=== PATIENT | female | born 1985 | race Caucasian/White ===

== ENCOUNTER 2016-07-23 21:03 | Emergency (ER) | payer MEDICAID ==
[2016-07-23] MEDS ORDERED: Sodium Chloride 0.9% 1,000 ML IV ONE (21:23)
[2016-07-23] MEDS ORDERED: Ondansetron 4 MG/2 ML SDV IVPUSH ONE (21:23)
[2016-07-23] MEDS ORDERED: Morphine 2 MG/ML Syringe IVPUSH ONE (21:23)
[2016-07-23] MEDS ORDERED: fentaNYL 100 MCG/2 ML SDV IVPUSH ONE (22:04)
--- NOTE | 2016-07-23 22:06 | EDM.PDOC ---
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 Patient indicates that she was diagnosed this morning with a ovarian cyst. Patient started having exquisite tenderness and pain from her abdomen radiating into her pelvic region immediately status post transvaginal ultrasound. Patient was given Voltaren for pain relief 2 minimal affect] Review of systems: As per history of present illness and below otherwise all systems reviewed and negative. Past medical history: As per history of present illness and as reviewed below otherwise noncontributory. Surgical history: As per history of present illness and as reviewed below otherwise noncontributory. Social history: No reported history of drug or alcohol abuse. Family history: As per history of present illness and as reviewed below otherwise noncontributory. Physical exam: HEENT: Atraumatic, normocephalic, pupils reactive, negative for conjunctival pallor or scleral icterus, mucous membranes moist, throat clear, neck supple, nontender, trachea midline. Lungs: Clear to auscultation, breath sounds equal bilaterally, chest nontender. Heart: S1S2, regular, negative for clicks, rubs, or JVD. Abdomen: Soft, nondistended, nontender. Negative for masses or hepatosplenomegaly. Negative for costovertebral tenderness. Pelvis: Stable nontender. Genitourinary: Deferred. Rectal: Deferred. Extremities: Atraumatic, negative for cords or calf pain. Neurovascular unremarkable. Neuro: Awake, alert, oriented. Cranial nerves II through XII unremarkable. Cerebellum unremarkable. Motor and sensory unremarkable throughout. Exam nonfocal. Test results were negative increased pain management until evaluated by UNEMPLOYMENT SPECIALIST in the a.m. Diagnostics: [CBC, CMP] Therapeutics: [IV, morphine, Zofran] Impression: [Abdominal pain] Plan: [Increased pain medication followup with UNEMPLOYMENT SPECIALIST tomorrow] Definitive disposition and diagnosis as appropriate pending reevaluation and review of above. Right Lower Abdomen Pain Score (Numeric/FACES): 10 - Related Data Allergies Allergy/AdvReac Type Severity Reaction Status Date / Time Penicillins Allergy Other Verified 01/23/16 14:20 Dial soap Allergy Difficulty Uncoded 12/07/14 15:39 Breathing Home Meds: Home Meds Omeprazole 20 mg PO DAILY 11/02/14 [History] Vilazodone Hydrochloride [Viibryd] 20 mg PO DAILY 02/26/16 [History] Diclofenac Sodium [Voltaren] 50 mg PO TIDMEALS 07/23/16 [History] LORazepam [Ativan] 0.5 mg PO ASDIRECTED PRN 07/23/16 [History] Ondansetron [Zofran ODT] 4 mg PO ASDIRECTED PRN 07/23/16 [History] metroNIDAZOLE [Flagyl] 500 mg PO Q12H 07/23/16 [History] Past Medical History - Past Health History Medical/Surgical History: Denies Medical/Surgical History Other HEENT History: Maxillary Sinusitis Respiratory History: Reports: Asthma, Bronchitis, recurrent Other Respiratory History: Nicotine Dependence 15 yr history of smoking, current use 1 pack per day Gastrointestinal History: Reports: GERD Other Gastrointestinal History: Heartburn / GERD, Fatty food intolerence, Epigastric pain, Internal hemorrhoid 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 OB/BYN History: Acute Pelvic Inflammatory disease, cyst on right ovary, IUD Psychiatric History: Reports: Anxiety, Depression Endocrine/Metabolic History: Reports: Obesity/BMI 30+ Other Immunologic History: Toxoplasmosis Other Dermatologic History: Psoriasis of Scalp - Past Surgical History Musculoskeletal Surgical 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 (see below) Other Musculoskeletal Surgeries/Procedures:: Left Hand surgery Social & Family History - Family History Family Medical History: Noncontributory Neurological: Reports: CVA - Tobacco Use Smoking Status *Q: Current Every Day Smoker Years of Tobacco use: 15 Packs/Tins Daily: 1 - Caffeine Use Caffeine Use: Reports: Soda Caffeine Use Comment: several per day - Alcohol Use Days Per Week of Alcohol Use: 1 Number of Drinks Per Day: 5 Total Drinks Per Week: 5 - Recreational Drug Use Recreational Drug Use: No Drug Use in Last 12 Months: No Recreational Drug Type: Reports: Marijuana/Hashish Recreational Drug Use Frequency: Not Used In Over 1 Year ED ROS GENERAL - Review of Systems Review Of Systems: See Below (The history of present illness) ED EXAM, GENERAL - Physical Exam Exam: See Below (History of present illness) Course - Vital Signs Last Recorded V/S: Last Vital Signs Temp 36.6 C 07/23/16 21:06 Pulse 80 07/23/16 21:06 Resp 20 07/23/16 21:06 BP 163/76 H 07/23/16 21:06 Pulse Ox 98 07/23/16 21:06 - Orders/Labs/Meds Orders: Active Orders 24 hr Category Date Time Status COMPREHENSIVE METABOLIC PN,CMP [CHEM] Stat Lab 07/23/16 21:23 Ordered UA W/MICROSCOPIC [URIN] Stat Lab 07/23/16 21:23 Uncollected Sodium Chloride 0.9% [Normal Saline] 1,000 ml Med 07/23/16 21:23 Ordered IV STAT Medication Orders Sodium Chloride (Normal Saline) 1,000 mls @ 999 mls/hr IV STAT ONE Stop: 07/23/16 22:23 Last Admin: 07/23/16 21:42 Dose: 999 mls/hr Labs: Laboratory Tests 07/23/16 Range/Units 21:30 WBC 12.90 H (4.0-11.0) K/uL RBC 4.73 (4.30-5.90) M/uL Hgb 14.0 (12.0-16.0) g/dL Hct 42.6 (36.0-46.0) % MCV 90.1 (80.0-98.0) fL MCH 29.6 (27.0-32.0) pg MCHC 32.9 (31.0-37.0) g/dL RDW Std Deviation 45.7 (28.0-62.0) fl RDW Coeff of Abhishek 14 (11.0-15.0) % Plt Count 347 (150-400) K/uL MPV 11.50 (7.40-12.00) fL Neut % (Auto) 62.8 (48.0-80.0) % Lymph % (Auto) 28.4 (16.0-40.0) % Vigo % (Auto) 6.2 (0.0-15.0) % Eos % (Auto) 2.0 (0.0-7.0) % Baso % (Auto) 0.6 (0.0-1.5) % Neut # (Auto) 8.1 H (1.4-5.7) K/uL Lymph # (Auto) 3.7 H (0.6-2.4) K/uL Vigo # (Auto) 0.8 (0.0-0.8) K/uL Eos # (Auto) 0.3 (0.0-0.7) K/uL Baso # (Auto) 0.1 (0.0-0.1) K/uL Nucleated RBC % 0.0 /100WBC Nucleated RBCs # 0 K/uL Meds: Medications Generic Name Dose Route Start Last Admin Trade Name Freq PRN Reason Stop Dose Admin Sodium Chloride 1,000 mls @ 999 mls/hr 07/23/16 21:23 07/23/16 21:42 Normal Saline IV 07/23/16 22:23 999 mls/hr STAT ONE Administration Discontinued Medications Generic Name Dose Route Start Last Admin Trade Name Freq PRN Reason Stop Dose Admin Fentanyl 50 mcg 07/23/16 22:04 07/23/16 22:09 Sublimaze IVPUSH 07/23/16 22:05 50 mcg ONETIME ONE Administration Morphine Sulfate 4 mg 07/23/16 21:23 07/23/16 21:42 Morphine IVPUSH 07/23/16 21:24 4 mg ONETIME ONE Administration Ondansetron HCl 8 mg 07/23/16 21:23 07/23/16 21:41 Zofran IVPUSH 07/23/16 21:24 8 mg ONETIME ONE Administration Departure - Departure Time of Disposition: 22:06 Disposition: Home, Self-Care 01 Condition: good Clinical Impression: Pelvic pain Referrals: PCP,None [Primary Care Provider] - Forms: ED Department Discharge Additional Instructions: The following information is given to patients seen in the emergency department who are being discharged to home. This information is to outline your options for follow-up care. We provide all patients seen in our emergency department with a follow-up referral. The need for follow-up, as well as the timing and circumstances, are variable depending upon the specifics of your emergency department visit. If you don't have a primary care physician on staff, we will provide you with a referral. We always advise you to contact your personal physician following an emergency department visit to inform them of the circumstance of the visit and for follow-up with them and/or the need for any referrals to a consulting specialist. The emergency department will also refer you to a specialist when appropriate. This referral assures that you have the opportunity for follow-up care with a specialist. All of these measure are taken in an effort to provide you with optimal care, which includes your follow-up. Under all circumstances we always encourage you to contact your private physician who remains a resource for coordinating your care. When calling for follow-up care, please make the office aware that this follow-up is from your recent emergency room visit. If for any reason you are refused follow-up, please contact the [facility] Emergency Department at and asked to speak to the emergency department charge nurse. Pain medication as directed Primary care provider in one to 2 days Return to ED as needed as discussed - My Orders Last 24 Hours: My Active Orders 07/23/16 21:23 COMPREHENSIVE METABOLIC PN,CMP [CHEM] Stat UA W/MICROSCOPIC [URIN] Stat Sodium Chloride 0.9% [Normal Saline] 1,000 ml IV STAT - Assessment/Plan Last 24 Hours: My Active Orders 07/23/16 21:23 COMPREHENSIVE METABOLIC PN,CMP [CHEM] Stat UA W/MICROSCOPIC [URIN] Stat Sodium Chloride 0.9% [Normal Saline] 1,000 ml IV STAT
[2016-07-23 22:28] LABS: CHLORIDE,CL 110 mmol/L (98-110); SODIUM,NA 140 mmol/L (136-146)
[2016-07-23 22:57] VITALS: BP 119/60
== END 2016-07-23 23:01 | disposition home or self-care (01) ==
LOC: MW.ED 21:03
DX: R10.2 Pelvic and perineal pain (principal); J45.909 Unspecified asthma, uncomplicated; K21.9 Gastro-esophageal reflux disease without esophagitis; F41.8 Other specified anxiety disorders; E66.9 Obesity, unspecified; Z68.30 Body mass index [BMI] 30.0-30.9, adult; F17.210 Nicotine dependence, cigarettes, uncomplicated; Z98.890 Other specified postprocedural states; Z88.0 Allergy status to penicillin; Z79.899 Other long term (current) drug therapy
CPT/HCPCS: 36415; 80053; 85025; 96361; 96374; 96375; 99284; J2270; J2405; J3010; J7040

== ENCOUNTER → 2016-07-23 | Outpatient (CLI) | payer MEDICAID ==
[~2016-07-23] MED LIST: Albuterol 0.083% 2.5 MG/3 ML Neb Soln NEB ONE
--- NOTE | 2016-07-23 17:10 | US ---
EXAMINATION: Transvaginal pelvic ultrasound HISTORY: Pelvic pain COMPARISON: None TECHNIQUE: Grayscale, color Doppler, and spectral Doppler images obtained transvaginally. FINDINGS: The uterus appears normal in size, contour, and echogenicity without a focal uterine mass. Endometrial stripe thickness measures 8 mm. There is a linear echogenic focus noted within the endo metrial stripe. The right ovary measures 6.3 x 3.3 x 2.7 cm demonstrating normal color and spectral Doppler flow. Th ere is a 2.2 cm simple cyst within the right ovary. The left ovary appears normal in size, contour, and echogenicity, however not optimally characterize. Normal color and spectral Doppler flow is note d. The left ovary contains a small 1.9 cm cyst is well. No adnexal masses. No significant free pelvi c fluid. IMPRESSION: 1. There is an IUD within the uterus, otherwise unremarkable transvaginal pelvic ultrasound.
== END ==
LOC: MW.US 12:58 → MW.RT 12:58
PROVIDERS: ATTEND Nurse Practitioner Women's Health
DX: R10.2 Pelvic and perineal pain (principal); R05 Cough; Z87.09 Personal history of other diseases of the respiratory system; Z97.5 Presence of (intrauterine) contraceptive device
CPT/HCPCS: 76830; 76830-26; 94060

== ENCOUNTER → 2016-08-09 | Outpatient (CLI) | payer MEDICAID ==
--- NOTE | 2016-08-09 12:46 | CR ---
EXAMINATION: Right ankle HISTORY: Pain COMPARISON: None TECHNIQUE: 3 views FINDINGS: There is no fracture, dislocation, or acute osseous abnormality. Moderate osteophytes are noted along the medial and posterior aspect of the subtalar joint. Bone mineralization otherwise alicia ears normal. No soft tissue swelling. IMPRESSION: 1. Prominent osteophytes along the posterior aspect of the subtalar joint, this could suggest powered bridge specialist ior ankle impingement.
== END | disposition home or self-care (01) ==
LOC: MW.CHOBGYN 10:22
PROVIDERS: ATTEND Nurse Practitioner Women's Health
DX: M25.571 Pain in right ankle and joints of right foot (principal); M25.774 Osteophyte, right foot
CPT/HCPCS: 73610-26-RT; 73610-RT

== ENCOUNTER 2017-08-19 20:32 | Emergency (ER) | payer MEDICAID ==
[2017-08-19] MEDS ORDERED: cefTRIAXone 1,000 MG in Lidocaine 1% 4 ML IM ONE (21:17)
--- NOTE | 2017-08-19 21:20 | EDM.PDOC ---
ED HPI GENERAL MEDICAL PROBLEM - General Chief Complaint: General Stated Complaint: PT HAS BODY PAIN Time Seen by Provider: 08/19/17 21:15 Source of Information: Reports: Patient History Limitations: Reports: No Limitations - History of Present Illness INITIAL COMMENTS - FREE TEXT/NARRATIVE: HISTORY AND PHYSICAL: []32-year-old female presenting with body aches all over she was diagnosed with strep 1 week ago still has some Augmentin to take it as feeling worse History of Present Illness: []Patient states she has taken the medicine as it has been prescribed Review of Systems: As per history of present illness and below otherwise all systems reviewed and negative. Past medical history: As per history of present illness and as reviewed below otherwise noncontributory. Surgical history: As per history of present illness and as reviewed below otherwise noncontributory. Social history: No reported history of drug or alcohol abuse. Family history: As per history of present illness and as reviewed below otherwise noncontributory. Physical exam: Alert and oriented female answering questions appropriately she has purple hair HEENT: Atraumatic, normocehpalic, pupils reactive, negative for conjunctival pallor or scleral icterus, mucous membranes moist, throat clear, neck supple, nontender, trachea midline. Lung Slight wheeze on auscultationion, breath sounds equal bilaterally, chest non tender. Heart: S1S2, regular, negative for clicks, rubs, or JVD. Abdomen: Soft, nondistended, nontender. Negative for masses or hepatossplenmegaly. Negative for costovertebral tenderness. Pelvis: Stable nontender. Genitourinary: Deferred. Rectal: Deferred Extremities: Atraumatic, negative for cords or calf pain. Neurovascular unremarkable. Neuro: Awake, alert, oriented. Cranial nerves II through XII unremarkable. Cerebellum unremarkable. Motor and sensory unremarkable throughout. Exam nonfocal. Diagnostics: [] Therapeutics: []Rocephin 1 g IM Impression: []Strep infection Plan: [] Home clindamycin Follow-up with your primary care provider She do not have a primary care care provider you need to establish care [address] [place], [place] [id number] [facility] [address] [place] [id number] Under the emergency room as directed and discussed Definitive disposition and diagnosis as appropriate pending reevaluation and review of above. Onset: Gradual Duration: Day(s): (7) Location: Reports: Generalized Severity: Mild Improves with: Reports: None Worsens with: Reports: None Associated Symptoms: Reports: Cough general Pain Score (Numeric/FACES): 6 - Related Data Allergies Allergy/AdvReac Type Severity Reaction Status Date / Time Penicillins Allergy Other Verified 08/23/16 08:41 Dial soap Allergy Difficulty Uncoded 12/07/14 15:39 Breathing Home Meds: Home Meds Omeprazole 40 mg PO DAILY 11/02/14 [History] Vilazodone [Viibryd] 40 mg PO DAILY 02/26/16 [History] Diclofenac Sodium [Voltaren] 50 mg PO TIDMEALS 07/23/16 [History] LORazepam [Ativan] 0.5 mg PO ASDIRECTED PRN 07/23/16 [History] Ondansetron [Zofran ODT] 4 mg PO ASDIRECTED PRN 07/23/16 [History] metroNIDAZOLE [Flagyl] 500 mg PO Q12H 07/23/16 [History] Clindamycin Hcl [IJD: Clindamycin] 150 mg PO .EVERY 8 HOURS #30 cap 08/19/17 [Rx ] Past Medical History - Past Health History Medical/Surgical History: Denies Medical/Surgical History Other HEENT History: Maxillary Sinusitis Cardiovascular History: Reports: None Respiratory History: Reports: Asthma, Bronchitis, Recurrent Other Respiratory History: Nicotine Dependence 15 yr history of smoking, current use <1 pack per day Gastrointestinal History: Reports: GERD Other Gastrointestinal History: Heartburn / GERD, Fatty food intolerence, Epigastric pain, Internal hemorrhoid 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 OB/BYN History: Acute Pelvic Inflammatory disease, cyst on right ovary, IUD in past Psychiatric History: Reports: Anxiety, Depression, Other (See Below) Other Psychiatric History: Schizo-affective disorder, Borderline personality disorder with social anxiety- manages on an ongoing basis at Endocrine/Metabolic History: Reports: Obesity/BMI 30+, Other (See Below) Other Endocrine/Metabolic History: Hypoglycemia Other Immunologic History: Toxoplasmosis Other Dermatologic History: Psoriasis of Scalp - Infectious Disease History Infectious Disease History: Reports: Chicken Pox - Past Surgical History GI Surgical History: Reports: Cholecystectomy, Colonoscopy, EGD Musculoskeletal Surgical History: Reports: Ganglion Cyst Social & Family History - Family History Family Medical History: Noncontributory Neurological: Reports: CVA - Tobacco Use Smoking Status *Q: Current Every Day Smoker Years of Tobacco use: 15 Packs/Tins Daily: 1 - Caffeine Use Caffeine Use: Reports: Soda Caffeine Use Comment: several per day - Alcohol Use Days Per Week of Alcohol Use: 1 Number of Drinks Per Day: 5 Total Drinks Per Week: 5 - Recreational Drug Use Recreational Drug Use: No Drug Use in Last 12 Months: No Recreational Drug Type: Reports: Marijuana/Hashish Recreational Drug Use Frequency: Not Used In Over 1 Year ED ROS GENERAL - Review of Systems Review Of Systems: ROS reveals no pertinent complaints other than HPI. ED EXAM, GENERAL - Physical Exam Exam: See Below (see dictation) Course - Vital Signs Last Recorded V/S: Last Vital Signs Temp 36.6 C 08/19/17 20:45 Pulse 98 08/19/17 20:45 Resp 18 08/19/17 20:45 BP 142/94 H 08/19/17 20:45 Pulse Ox 98 08/19/17 20:45 Departure - Departure Time of Disposition: 21:18 Disposition: Home, Self-Care 01 Condition: Good Clinical Impression: Streptococcal infection - Discharge Information Prescriptions: Clindamycin Hcl [IJD: Clindamycin] 150 mg PO .EVERY 8 HOURS #30 cap Referrals: PCP,None [Primary Care Provider] - Additional Instructions: The following information is given to patients seen in the emergency department who are being discharged to home. This information is to outline your options for follow-up care. We provide all patients seen in our emergency department with a follow-up referral. The need for follow-up, as well as the timing and circumstances, are variable depending upon the specifics of your emergency department visit. If you don't have a primary care physician on staff, we will provide you with a referral. We always advise you to contact your personal physician following an emergency department visit to inform them of the circumstance of the visit and for follow-up with them and/or the need for any referrals to a consulting specialist. The emergency department will also refer you to a specialist when appropriate. This referral assures that you have the opportunity for followup care with a specialist. All of these measure are taken in an effort to provide you with optimal care, which includes your followup. Under all circumstances we always encourage you to contact your private physician who remains a resource for coordinating your care. When calling for followup care, please make the office aware that this follow-up is from your recent emergency room visit. If for any reason you are refused follow-up, please contact the [facility] emergency department at and asked to speak to the emergency department charge nurse. Follow-up with your primary care provider If you have not establish care with a provider please call 1 of these clinics to establish care [facility] [address] [place] [address] [place] [address] EScription of clindamycin has been sent to your pharmacy Follow-up in emergency room as directed and discussed
[2017-08-19 21:56] VITALS: BP 134/87
== END 2017-08-19 21:54 | disposition home or self-care (01) ==
LOC: MW.ED 20:32
DX: A49.1 Streptococcal infection, unspecified site (principal); F17.210 Nicotine dependence, cigarettes, uncomplicated; K21.9 Gastro-esophageal reflux disease without esophagitis; F41.9 Anxiety disorder, unspecified; F32.9 Major depressive disorder, single episode, unspecified; F20.9 Schizophrenia, unspecified; E66.9 Obesity, unspecified; Z79.899 Other long term (current) drug therapy; Z88.0 Allergy status to penicillin; Z68.35 Body mass index [BMI] 35.0-35.9, adult
CPT/HCPCS: 96372; 99283; J0696; J2001

== ENCOUNTER 2017-12-18 12:00 | Emergency (ER) | payer MEDICAID ==
[2017-12-18 12:20] VITALS: BP 112/86
[2017-12-18] MEDS ORDERED: Sodium Chloride 0.9% 1,000 ML IV ONE (12:26)
[2017-12-18] MEDS ORDERED: Sodium Chloride 0.9% 2.5 ML Syringe FLUSH PRN (12:26)
[2017-12-18] MEDS ORDERED: Sodium Chloride 0.9% 10 ML Syringe FLUSH PRN (12:26)
[2017-12-18] MEDS ORDERED: Ketorolac 30 MG/ML SDV IVPUSH ONE (12:26)
--- NOTE | 2017-12-18 12:36 | EDM.PDOC ---
ED HPI GENERAL MEDICAL PROBLEM - General Chief Complaint: Abdominal Pain Stated Complaint: PAIN IN UPPER RT ABD Time Seen by Provider: 12/18/17 12:26 Source of Information: Reports: Patient History Limitations: Reports: No Limitations - History of Present Illness INITIAL COMMENTS - FREE TEXT/NARRATIVE: HISTORY AND PHYSICAL: History of present illness: Patient is a 32-year-old female here with complaint of right lower abdominal pain. Patient states that she woke up about 1 hour ago with significant pain on the right side of her abdomen. She states that the pain is constantly there but will come and go and is more sharp at times. She reports she felt nauseous but denies any vomiting or diarrhea. She states she had a normal nonbloody stool this morning. She denies any fevers, chills, hematuria or dysuria, vaginal discharge or bleeding. Patient is uncertain of last menstrual period. She has history of cholecystectomy Review of systems: As per history of present illness and below otherwise all systems reviewed and negative. Past medical history: As per history of present illness and as reviewed below otherwise noncontributory. Surgical history: As per history of present illness and as reviewed below otherwise noncontributory. Social history: No reported history of drug or alcohol abuse. Family history: As per history of present illness and as reviewed below otherwise noncontributory. Physical exam: General: Patient sitting comfortably in no acute distress and nontoxic appearing HEENT: Atraumatic, normocephalic, pupils reactive, negative for conjunctival pallor or scleral icterus, mucous membranes moist, throat clear, neck supple, nontender, trachea midline. No meningeal signs. Lungs: Clear to auscultation, breath sounds equal bilaterally, chest nontender. Heart: S1S2, regular, negative for clicks, rubs, or overt murmur. Abdomen: Bowel sounds hyperactive. Tender to palpation of the right lower quadrant. Negative psoas and obturator sign. Soft, nondistended. Negative for masses or hepatosplenomegaly. Left CVA tenderness Pelvis: Stable nontender. Genitourinary: Deferred. Rectal: Deferred. Extremities: Atraumatic, negative for cords or calf pain. Neurovascular unremarkable. Neuro: Awake, alert, oriented. Cranial nerves II through XII unremarkable. Cerebellum unremarkable. Motor and sensory unremarkable throughout. Exam nonfocal. Notes: Diagnostics: CBC, CMP, lipase, UA, urine culture, CT abdomen/pelvis Therapeutics: 1 L normal saline IV 30 mg Toradol IV Prescriptions: None Impression: Right ovarian cyst Left lower abdominal pain Plan: 1. Take motrin or tylenol as needed for pain. 2. Follow up with your primary care provider in the next week 3. Return to ED as needed as discussed Definitive disposition and diagnosis as appropriate pending reevaluation and review of above. Right Abdomen Pain Score (Numeric/FACES): 8 - Related Data Allergies Allergy/AdvReac Type Severity Reaction Status Date / Time Penicillins Allergy Other Verified 08/23/16 08:41 Dial soap Allergy Difficulty Uncoded 12/07/14 15:39 Breathing Home Meds: Home Meds Omeprazole 40 mg PO DAILY 11/02/14 [History] Ondansetron [Zofran ODT] 4 mg PO ASDIRECTED PRN 07/23/16 [History] Albuterol [Proventil HFA] 12/18/17 [History] Past Medical History - Past Health History Medical/Surgical History: Denies Medical/Surgical History Other HEENT History: Maxillary Sinusitis Cardiovascular History: Reports: None Respiratory History: Reports: Asthma, Bronchitis, Recurrent Other Respiratory History: Nicotine Dependence 15 yr history of smoking, current use <1 pack per day Gastrointestinal History: Reports: GERD Other Gastrointestinal History: Heartburn / GERD, Fatty food intolerence, Epigastric pain, Internal hemorrhoid MOTOR INSTALLER 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 MOTOR INSTALLER History: Acute Pelvic Inflammatory disease, cyst on right ovary, IUD in past Psychiatric History: Reports: Anxiety, Depression, Other (See Below) Other Psychiatric History: Schizo-affective disorder, Borderline personality disorder with social anxiety- manages on an ongoing basis at Endocrine/Metabolic History: Reports: Obesity/BMI 30+, Other (See Below) Other Endocrine/Metabolic History: Hypoglycemia Other Immunologic History: Toxoplasmosis Other Dermatologic History: Psoriasis of Scalp - Infectious Disease History Infectious Disease History: Reports: Chicken Pox - Past Surgical History GI Surgical History: Reports: Cholecystectomy, Colonoscopy, EGD Musculoskeletal Surgical History: Reports: Ganglion Cyst Social & Family History - Family History Family Medical History: Noncontributory Neurological: Reports: CVA - Caffeine Use Caffeine Use: Reports: Soda Caffeine Use Comment: several per day ED ROS GENERAL - Review of Systems Review Of Systems: ROS reveals no pertinent complaints other than HPI. ED EXAM, GI/ABD - Physical Exam Exam: See Below (See dictation) Course - Vital Signs Last Recorded V/S: Last Vital Signs Temp 36.4 C 12/18/17 12:16 Pulse 90 12/18/17 12:16 Resp 18 12/18/17 12:16 BP 112/86 12/18/17 12:16 Pulse Ox 98 12/18/17 12:16 - Orders/Labs/Meds Orders: Active Orders 24 hr Category Date Time Status CULTURE URINE [RM] Stat Lab 12/18/17 13:00 Ordered HCG QUALITATIVE,URINE [URCHEM] Stat Lab 12/18/17 13:00 Ordered UA W/MICROSCOPIC [URIN] Stat Lab 12/18/17 13:00 Ordered Sodium Chloride 0.9% [Saline Flush] Med 12/18/17 12:26 Active 10 ml FLUSH ASDIRECTED PRN Sodium Chloride 0.9% [Saline Flush] Med 12/18/17 12:26 Active 2.5 ml FLUSH ASDIRECTED PRN Saline Lock Insert [OM.PC] Stat Oth 12/18/17 12:26 Ordered Medication Orders Sodium Chloride (Saline Flush) 10 ml FLUSH ASDIRECTED PRN PRN Reason: Keep Vein Open Sodium Chloride (Saline Flush) 2.5 ml FLUSH ASDIRECTED PRN PRN Reason: Keep Vein Open Labs: Laboratory Tests 12/18/17 12/18/17 12/18/17 Range/Units 12:40 12:40 13:00 WBC 15.40 H (4.0-11.0) K/uL RBC 5.16 (4.30-5.90) M/uL Hgb 15.2 (12.0-16.0) g/dL Hct 46.0 (36.0-46.0) % MCV 89.1 (80.0-98.0) fL MCH 29.5 (27.0-32.0) pg MCHC 33.0 (31.0-37.0) g/dL RDW Std Deviation 43.5 (28.0-62.0) fl RDW Coeff of Abhishek 13 (11.0-15.0) % Plt Count 333 (150-400) K/uL MPV 10.90 (7.40-12.00) fL Neut % (Auto) 65.9 (48.0-80.0) % Lymph % (Auto) 24.5 (16.0-40.0) % Kings % (Auto) 5.3 (0.0-15.0) % Eos % (Auto) 3.9 (0.0-7.0) % Baso % (Auto) 0.4 (0.0-1.5) % Neut # (Auto) 10.2 H (1.4-5.7) K/uL Lymph # (Auto) 3.8 H (0.6-2.4) K/uL Kings # (Auto) 0.8 (0.0-0.8) K/uL Eos # (Auto) 0.6 (0.0-0.7) K/uL Baso # (Auto) 0.1 (0.0-0.1) K/uL Nucleated RBC % 0.0 /100WBC Nucleated RBCs # 0 K/uL Sodium 138 (136-145) mmol/L Potassium 4.3 (3.5-5.1) mmol/L Chloride 103 (98-107) mmol/L Carbon Dioxide 27.3 (21.0-32.0) mmol/L BUN 9 (7.0-18.0) mg/dL Creatinine 0.8 (0.6-1.0) mg/dL Est Cr Clr Drug Dosing TNP Estimated GFR (MDRD) > 60.0 ml/min Glucose 89 (74-106) mg/dL Calcium 8.5 (8.5-10.1) mg/dL Total Bilirubin 0.1 L (0.2-1.0) mg/dL AST 13 L (15-37) IU/L ALT 26 (14-63) IU/L Alkaline Phosphatase 72 (46-116) U/L Total Protein 7.5 (6.4-8.2) g/dL Albumin 3.5 (3.4-5.0) g/dL Globulin 4.0 H (2.0-3.5) g/dL Albumin/Globulin Ratio 0.9 L (1.3-2.8) Lipase 302 (73-393) U/L Urine Color YELLOW Urine Appearance CLEAR Urine pH 6.0 (5.0-8.0) Ur Specific [place] 1.010 (1.001-1.035) Urine Protein NEGATIVE (NEGATIVE) mg/dL Urine Glucose (UA) NEGATIVE (NEGATIVE) mg/dL Urine Ketones NEGATIVE (NEGATIVE) mg/dL Urine Occult Blood NEGATIVE (NEGATIVE) Urine Nitrite NEGATIVE (NEGATIVE) Urine Bilirubin NEGATIVE (NEGATIVE) Urine Urobilinogen 0.2 (<2.0) EU/dL Ur Leukocyte Esterase SMALL (NEGATIVE) Urine RBC 0-1 (0-2/HPF) Urine WBC 1-2 (0-5/HPF) Ur Epithelial Cells MANY (NONE-FEW) Urine Bacteria RARE (NEGATIVE) Urine HCG, Qual (NEGATIVE) 12/18/17 Range/Units 13:00 WBC (4.0-11.0) K/uL RBC (4.30-5.90) M/uL Hgb (12.0-16.0) g/dL Hct (36.0-46.0) % MCV (80.0-98.0) fL MCH (27.0-32.0) pg MCHC (31.0-37.0) g/dL RDW Std Deviation (28.0-62.0) fl RDW Coeff of Abhishek (11.0-15.0) % Plt Count (150-400) K/uL MPV (7.40-12.00) fL Neut % (Auto) (48.0-80.0) % Lymph % (Auto) (16.0-40.0) % Kings % (Auto) (0.0-15.0) % Eos % (Auto) (0.0-7.0) % Baso % (Auto) (0.0-1.5) % Neut # (Auto) (1.4-5.7) K/uL Lymph # (Auto) (0.6-2.4) K/uL Kings # (Auto) (0.0-0.8) K/uL Eos # (Auto) (0.0-0.7) K/uL Baso # (Auto) (0.0-0.1) K/uL Nucleated RBC % /100WBC Nucleated RBCs # K/uL Sodium (136-145) mmol/L Potassium (3.5-5.1) mmol/L Chloride (98-107) mmol/L Carbon Dioxide (21.0-32.0) mmol/L BUN (7.0-18.0) mg/dL Creatinine (0.6-1.0) mg/dL Est Cr Clr Drug Dosing Estimated GFR (MDRD) ml/min Glucose (74-106) mg/dL Calcium (8.5-10.1) mg/dL Total Bilirubin (0.2-1.0) mg/dL AST (15-37) IU/L ALT (14-63) IU/L Alkaline Phosphatase (46-116) U/L Total Protein (6.4-8.2) g/dL Albumin (3.4-5.0) g/dL Globulin (2.0-3.5) g/dL Albumin/Globulin Ratio (1.3-2.8) Lipase (73-393) U/L Urine Color Urine Appearance Urine pH (5.0-8.0) Ur Specific [place] (1.001-1.035) Urine Protein (NEGATIVE) mg/dL Urine Glucose (UA) (NEGATIVE) mg/dL Urine Ketones (NEGATIVE) mg/dL Urine Occult Blood (NEGATIVE) Urine Nitrite (NEGATIVE) Urine Bilirubin (NEGATIVE) Urine Urobilinogen (<2.0) EU/dL Ur Leukocyte Esterase (NEGATIVE) Urine RBC (0-2/HPF) Urine WBC (0-5/HPF) Ur Epithelial Cells (NONE-FEW) Urine Bacteria (NEGATIVE) Urine HCG, Qual NEGATIVE (NEGATIVE) Meds: Medications Generic Name Dose Route Start Last Admin Trade Name Freq PRN Reason Stop Dose Admin Sodium Chloride 10 ml 12/18/17 12:26 Saline Flush FLUSH ASDIRECTED PRN Keep Vein Open Sodium Chloride 2.5 ml 12/18/17 12:26 Saline Flush FLUSH ASDIRECTED PRN Keep Vein Open Discontinued Medications Generic Name Dose Route Start Last Admin Trade Name Ky PRN Reason Stop Dose Admin Sodium Chloride 1,000 mls @ 999 mls/hr 12/18/17 12:26 12/18/17 12:51 Normal Saline IV 12/18/17 13:26 999 mls/hr STAT ONE Administration Iopamidol 100 ml 12/18/17 14:20 12/18/17 14:22 Isovue Multipack-370 (76%) IVPUSH 12/18/17 14:21 100 ml ONETIME STA Administration Ketorolac Tromethamine 30 mg 12/18/17 12:26 12/18/17 12:48 Toradol IVPUSH 12/18/17 12:27 30 mg ONETIME ONE Administration Departure - Departure Time of Disposition: 14:50 Disposition: Home, Self-Care 01 Condition: Good Clinical Impression: Right ovarian cyst, LLQ abdominal pain - Discharge Information Referrals: PCP,Ap [Primary Care Provider] - Adreinne Sheehan, ART TEACHER [Nurse Practitioner] - 2 Days Forms: ED Department Discharge Additional Instructions: The following information is given to patients seen in the emergency department who are being discharged to home. This information is to outline your options for follow-up care. We provide all patients seen in our emergency department with a follow-up referral. The need for follow-up, as well as the timing and circumstances, are variable depending upon the specifics of your emergency department visit. If you don't have a primary care physician on staff, we will provide you with a referral. We always advise you to contact your personal physician following an emergency department visit to inform them of the circumstance of the visit and for follow-up with them and/or the need for any referrals to a consulting specialist. The emergency department will also refer you to a specialist when appropriate. This referral assures that you have the opportunity for follow-up care with a specialist. All of these measure are taken in an effort to provide you with optimal care, which includes your follow-up. Under all circumstances we always encourage you to contact your private physician who remains a resource for coordinating your care. When calling for follow-up care, please make the office aware that this follow-up is from your recent emergency room visit. If for any reason you are refused follow-up, please contact the [facility] Emergency Department at and asked to speak to the emergency department charge nurse. [facility] [address] [place] [id number] 1. Take motrin or tylenol as needed for pain. 2. Follow up with your primary care provider in the next week 3. Return to ED as needed as discussed - My Orders Last 24 Hours: My Active Orders 12/18/17 12:26 Sodium Chloride 0.9% [Saline Flush] 10 ml FLUSH ASDIRECTED PRN Sodium Chloride 0.9% [Saline Flush] 2.5 ml FLUSH ASDIRECTED PRN Saline Lock Insert [OM.PC] Stat 12/18/17 13:00 CULTURE URINE [RM] Stat HCG QUALITATIVE,URINE [URCHEM] Stat UA W/MICROSCOPIC [URIN] Stat - Assessment/Plan Last 24 Hours: My Active Orders 12/18/17 12:26 Sodium Chloride 0.9% [Saline Flush] 10 ml FLUSH ASDIRECTED PRN Sodium Chloride 0.9% [Saline Flush] 2.5 ml FLUSH ASDIRECTED PRN Saline Lock Insert [OM.PC] Stat 12/18/17 13:00 CULTURE URINE [RM] Stat HCG QUALITATIVE,URINE [URCHEM] Stat UA W/MICROSCOPIC [URIN] Stat
[2017-12-18 13:42] LABS: CHLORIDE,CL 103 mmol/L (98-107); SODIUM,NA 138 mmol/L (136-145)
[2017-12-18] MEDS ORDERED: Iopamidol 755 MG/ML 500 ML Multipack Bottle IVPUSH STA (14:20)
--- NOTE | 2017-12-18 14:41 | CT ---
CT of the abdomen and pelvis with contrast. HISTORY: Pain TECHNIQUE: Axial CT images were obtained of the abdomen and pelvis following administration of 100 mL of Isovue-370 in the left antecubital fossa without complication. Coronal and sagittal reconstructio ns obtained. FINDINGS: There is a tiny 4 mm nodule within the right middle lobe, likely benign given the patient's age. The liver, spleen, adrenal glands, and pancreas appear normal. Cholecystectomy clips are noted. No bu lky retroperitoneal lymphadenopathy or abdominal ascites. The kidneys enhance and function symmetrically without evidence of obstructive uropathy. The large and small bowel are normal in caliber without evidence of obstruction. The retrocecal appen ector appears grossly normal. The urinary bladder is decompressed. Uterus is normal. 2.4 cm left ovaria n cyst is noted. No pelvic lymphadenopathy or free pelvic fluid. No suspicious osseous abnormalities identified. IMPRESSION: 1. No acute findings noted within the abdomen or pelvis.
== END 2017-12-18 15:02 | disposition home or self-care (01) ==
LOC: MW.ED 12:00
DX: N83.201 Unspecified ovarian cyst, right side (principal); Z88.0 Allergy status to penicillin; Z91.09 Other allergy status, other than to drugs and biological substances; Z79.899 Other long term (current) drug therapy
CPT/HCPCS: 36415; 74177; 80053; 81001; 81025; 83690; 85025; 87086; 96361; 96374; 99284; J1885; J7040; Q9967

== ENCOUNTER 2018-04-28 20:37 | Emergency (ER) | payer MEDICAID ==
--- NOTE | 2018-04-28 20:52 | EDM.PDOC ---
ED HPI GENERAL MEDICAL PROBLEM - General Chief Complaint: Back Pain or Injury Stated Complaint: BACK PAIN Time Seen by Provider: 04/28/18 20:44 - History of Present Illness INITIAL COMMENTS - FREE TEXT/NARRATIVE: HISTORY AND PHYSICAL: History of present illness: Patient is a 32-year-old female who has a history of chronic back pain and was seen here 3 times in March in the emergency department twice for back pain and one for urinary symptoms and also saw her provider in the clinic. According to the computer the patient had an MRI performed today at 4:00 of the lumbar spine which has not been read. The patient in the past has taken tramadol Zanaflex and meloxicam for her pain and when she was seen here in March she received Toradol Lexapro and one dose of Dilaudid and was significantly better. Since those visits she has followed up in the clinic and had the MRI performed. The patient says that she was doing fine all day today and she took her last Flexeril and tramadol before her MRI and was able to perform the MRI without much pain. Since that time she feels like she has had increased spasm in the same location as previously in her lower thoracic and upper lumbar spine bilaterally. The pain does not radiate to her legs and she has no bowel or bladder disturbances. She has no neurosensory changes or weakness in her legs and she has had no recent trauma or falls. She's had nausea for the pain but no vomiting and no abdominal pain. She denies which was checked prior to her MRI. She's had no fevers chills upper respiratory symptoms shortness of breath and no urinary complaints such as hematuria dysuria frequency and no flank pain. Due to the pain to not having her medications and says that there is nothing new or different about it. Review of systems: As per history of present illness and below otherwise all systems reviewed and negative. Past medical history: As per history of present illness and as reviewed below otherwise noncontributory. Surgical history: As per history of present illness and as reviewed below otherwise noncontributory. Social history: No reported history of drug or alcohol abuse. Family history: As per history of present illness and as reviewed below otherwise noncontributory. Physical exam: General: Well-developed well-nourished mildly overweight female who is nontoxic and looks very uncomfortable in the room and has difficulty sitting still because of the discomfort. Vital signs were noted by me HEENT: Atraumatic, normocephalic, negative for conjunctival pallor or scleral icterus, mucous membranes moist, throat clear, neck supple, nontender, trachea midline. Lungs: Clear to auscultation, breath sounds equal bilaterally, chest nontender. Heart: S1S2, regular rate and rhythm no overt murmurs Abdomen: Soft, nondistended, nontender. Negative for masses or hepatosplenomegaly. Negative for costovertebral tenderness. Pelvis: Stable nontender. Genitourinary: Deferred. Rectal: Deferred. Extremities: Atraumatic,. Neurovascular unremarkable. Full range of motion without defects or deficits Neuro: Awake, alert, oriented. Cranial nerves II through XII unremarkable. Cerebellum unremarkable. Motor and sensory unremarkable throughout. Exam nonfocal. Dorsi and plantar flexion is intact 5/5 inclusive of the great toe patellar reflexes are +2 over 4 bilaterally and there is no weakness in the lower extremities. Back: There are no midline step-offs tenderness defects of the thoracic or lumbar spine but there is diffuse tenderness with palpation of the paraspinal musculature of the lower thoracic and upper lumbar areas bilaterally. There is no soft tissue swelling appreciated and there is no CVA tenderness. There is no tenderness when I palpate the SI joint or the pelvis nor is there pain with palpation of the buttocks bilaterally Diagnostics: MRI from earlier today was sent to [facility] for reading Therapeutics: Toradol Norflex Byron Patient is aware of MRI results which reveal a right paracentral moderate disc bulge which does not cause any spinal canal impingement and this is at L5-S1. This is not the area where she is having discomfort which is more muscular and she agrees that the Flexeril she had previously works very well for her with the tramadol. She would like that for home rather than the Zanaflex. I told her that once her pain is under better control here she can go home and follow-up with Adrienne in the clinic. We will also give her a Medrol pack to see if that helps with some of the inflammation of the disc. She now tells me that she does have intermittent numbness in her great toe and second toe which is not new or different and this would explain those findings. She again tells me that the pain does not shoot down her leg and there is no bowel or bladder disturbances. Patient tells me the pain is improving and she would like to go home so that she can make the pharmacy before they closed. Impression: Lower back pain acute on chronic, right paracentral disc protrusion at L5-S1, medication refill Definitive disposition and diagnosis as appropriate pending reevaluation and review of above. middle back Pain Score (Numeric/FACES): 10 - Related Data Allergies Allergy/AdvReac Type Severity Reaction Status Date / Time Dial soap Allergy Difficulty Uncoded 04/28/18 20:53 Breathing Home Meds: Home Meds Omeprazole 40 mg PO DAILY 11/02/14 [History] Albuterol [Proventil HFA] 1 puff INH ASDIRECTED PRN 12/18/17 [History] Meloxicam 7.5 mg PO DAILY 04/15/18 [History] traMADol HCl [Tramadol HCl] 50 mg PO Q6H PRN 04/15/18 [History] Cyclobenzaprine [Flexeril] 1 tab PO TID PRN 04/28/18 [History] Past Medical History - Past Health History Medical/Surgical History: Denies Medical/Surgical History Other HEENT History: Maxillary Sinusitis Cardiovascular History: Reports: None Respiratory History: Reports: Asthma, Bronchitis, Recurrent Other Respiratory History: Nicotine Dependence 15 yr history of smoking, current use <1 pack per day Gastrointestinal History: Reports: GERD Other Gastrointestinal History: Heartburn / GERD, Fatty food intolerence, Epigastric pain, Internal hemorrhoid MARINE TECHNICIAN 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 MARINE TECHNICIAN History: Acute Pelvic Inflammatory disease, cyst on right ovary, IUD in past Psychiatric History: Reports: Anxiety, Depression, Other (See Below) Other Psychiatric History: Schizo-affective disorder, Borderline personality disorder with social anxiety- manages on an ongoing basis at Endocrine/Metabolic History: Reports: Obesity/BMI 30+, Other (See Below) Other Endocrine/Metabolic History: Hypoglycemia Other Immunologic History: Toxoplasmosis Other Dermatologic History: Psoriasis of Scalp - Infectious Disease History Infectious Disease History: Reports: None - Past Surgical History GI Surgical History: Reports: Cholecystectomy, Colonoscopy, EGD Musculoskeletal Surgical History: Reports: Ganglion Cyst Social & Family History - Family History Family Medical History: Noncontributory Neurological: Reports: CVA - Caffeine Use Caffeine Use: Reports: Coffee Caffeine Use Comment: several per day ED ROS GENERAL - Review of Systems Review Of Systems: ROS reveals no pertinent complaints other than HPI. ED EXAM, GENERAL - Physical Exam Exam: See Below (See dictation) Course - Vital Signs Last Recorded V/S: Last Vital Signs Temp 36.6 C 04/28/18 20:40 Pulse 64 04/28/18 20:40 Resp 18 04/28/18 20:40 BP 127/89 04/28/18 20:40 Pulse Ox 96 04/28/18 20:40 - Orders/Labs/Meds Meds: Medications Discontinued Medications Generic Name Dose Route Start Last Admin Trade Name Ky PRN Reason Stop Dose Admin Hydrocodone Bitart/Acetaminophen 1 tab 04/28/18 20:58 04/28/18 21:12 Byron 325-7.5 Mg PO 04/28/18 20:59 1 tab ONETIME ONE Administration Ketorolac Tromethamine 60 mg 04/28/18 20:58 04/28/18 21:13 Toradol IM 04/28/18 20:59 60 mg ONETIME ONE Administration Orphenadrine Citrate 60 mg 04/28/18 20:58 04/28/18 21:13 Norflex IM 04/28/18 20:59 60 mg ONETIME ONE Administration Departure - Departure Time of Disposition: 21:46 Disposition: Home, Self-Care 01 Condition: Good Clinical Impression: Musculoskeletal pain, Lumbar disc disease Lower back pain Qualifiers: Chronicity: unspecified Back pain laterality: bilateral Sciatica presence: without sciatica Qualified Code(s): M54.5 - Low back pain - Discharge Information Referrals: Adrienne Sheehan, FOUNDER [Primary Care Provider] - Forms: ED Department Discharge Additional Instructions: The following information is given to patients seen in the emergency department who are being discharged to home. This information is to outline your options for follow-up care. We provide all patients seen in our emergency department with a follow-up referral. The need for follow-up, as well as the timing and circumstances, are variable depending upon the specifics of your emergency department visit. If you don't have a primary care physician on staff, we will provide you with a referral. We always advise you to contact your personal physician following an emergency department visit to inform them of the circumstance of the visit and for follow-up with them and/or the need for any referrals to a consulting specialist. The emergency department will also refer you to a specialist when appropriate. This referral assures that you have the opportunity for followup care with a specialist. All of these measure are taken in an effort to provide you with optimal care, which includes your followup. Under all circumstances we always encourage you to contact your private physician who remains a resource for coordinating your care. When calling for followup care, please make the office aware that this follow-up is from your recent emergency room visit. If for any reason you are refused follow-up, please contact the [facility] emergency department at and ask to speak to the emergency department charge nurse. [facility] Primary care- Internal Medicine and Family [address] [address] Please contact and follow-up with Adrienne in the clinic as we discussed over the next few days to discuss future treatment of your MRI results. Please take medications as prescribed, Flexeril tramadol and the Medrol Dosepak. You may apply heat or ice to the back areas and gentle massage to help open it up. Please do some stretching exercises to try to open areas up. Return to ER as needed and as discussed
[2018-04-28] MEDS ORDERED: Ketorolac 60 MG/2 ML SDV IM ONE (20:58)
[2018-04-28] MEDS ORDERED: Acetaminophen/HYDROcodone 325-7.5 MG Tab PO ONE (20:58)
[2018-04-28 22:00] VITALS: BP 122/81
== END 2018-04-28 21:50 | disposition home or self-care (01) ==
LOC: MW.ED 20:37
DX: M51.9 Unspecified thoracic, thoracolumbar and lumbosacral intervertebral disc disorder (principal); Z79.899 Other long term (current) drug therapy; Z76.0 Encounter for issue of repeat prescription
CPT/HCPCS: 96372; 99283; A9270; J1885; J2360

== ENCOUNTER 2018-06-12 12:48 | Day surgery (SDC) | payer MEDICAID ==
[~2018-06-12 12:48] MED LIST changes: -Albuterol 0.083% 2.5 MG/3 ML Neb Soln NEB ONE; +Betamethasone Acetate/Betamethasone Sod Phosphate 30 MG/5 ML MDV ONE; +Iopamidol 408 MG/ML 50 ML SDV ONE; +Lidocaine 2% 5 ML SDV ONE; +Ropivacaine 0.5% 5 MG/ML 30 ML SDV ONE
--- NOTE | 2018-06-13 16:12 | OR ---
SURGEON: Lorie Posada D.O. DATE OF PROCEDURE: 06/12/2018 OR STAFF PRESENT: 1. Ashley Mederos RN. 2. Elida King RN. 3. RT Yamil. WOUND CLASS: I. PREOPERATIVE DIAGNOSES: 1. Lumbar degenerative disk disease. 2. Lumbar herniated disk. 3. Lumbar radiculopathy. 4. Transitional vertebrae. 5. Neuroforaminal stenosis. 6. Chronic low back pain. POSTOPERATIVE DIAGNOSES: 1. Lumbar degenerative disk disease. 2. Lumbar herniated disk. 3. Lumbar radiculopathy. 4. Transitional vertebrae. 5. Neuroforaminal stenosis. 6. Chronic low back pain. PROCEDURES PERFORMED: 1. Caudal epidural steroid injection. 2. Fluoroscopic guidance for needle placement. 3. Local with oral valium for sedation. SCREENING QUESTIONS: The patient answered "no" to all of the following questions: 1. Are you allergic to latex? 2. Do you have a bleeding disorder? 3. Do you have any current local or systemic infections? 4. Are you taking any anti-inflammatories or blood thinners? 5. Do you have any joint replacements, heart valve replacements, or a pacemaker? DESCRIPTION OF PROCEDURE: The patient had the procedure thoroughly explained including all possible risks, benefits and alternatives. Consent was signed in my clinic indicating understanding and willingness to proceed. The patient presented to [facility] and was escorted to the dressing room to disrobe and change into a hospital gown. Preoperative vital signs were taken and stable. The patient reported that Valium was taken prior to the procedure. The patient was brought back to the procedure room and placed in the prone position on the procedure room table. A pillow was placed under the hips in order to flatten the lumbar lordosis. The back was prepped with ChloraPrep and sterilely draped. All personnel in the operating room were dressed in appropriate attire including surgical scrubs, head and shoe covers. This was to ensure sterility while in the treatment room. During the time fluoroscopy was in use, all personnel in the operating room wore lead dodson with thyroid collars. Sterile technique was used throughout the procedure. The patient was awake and conversant throughout the procedure. There was no evidence of infection at the site of needle insertion. Skeletal landmarks were identified under fluoroscopy for the caudal epidural. Skin was anesthetized with 2% lidocaine with a sterile 27-gauge 1.5 inch needle. Then, a 20-gauge Tuohy epidural needle was placed in the epidural space with loss of resistance technique under fluoroscopic guidance. No heme, cerebrospinal fluid, or paresthesias were noted. Isovue-200 contrast dye was injected in 0.2 cubic centimeter increments and seen to outline the epidural space in both AP and lateral views. There was no intravascular flow pattern observed under live fluoroscopy. Then, 12 milligrams of Celestone was slowly injected after negative aspiration. The patient tolerated the procedure well. Vital signs were stable during and after the procedure. The staff escorted the patient to the recovery area and the patient was released in stable condition after a brief stay in the recovery room monitored by the nurse. The patient was given both oral and written discharge and follow up instructions with recommendation to follow up given for 2-3 weeks. The patient voiced understanding including understanding of those signs and symptoms that would require emergency care. The patient knows how to contact the office if there are any additional problems or questions in the meantime. PREOPERATIVE PAIN: 7/10. POSTOPERATIVE PAIN: 0/10. FOLLOWUP: Follow up in the pain clinic in 3 weeks. ARIAN / EMIGDIO /[id number] PETAR
== END 2018-06-12 14:30 | disposition home or self-care (01) ==
LOC: MW.SDS 12:48
PROVIDERS: ATTEND Anesthesiology
DX: G89.29 Other chronic pain (principal); M51.17 Intervertebral disc disorders with radiculopathy, lumbosacral region; M79.18 Myalgia, other site; J45.909 Unspecified asthma, uncomplicated; F17.200 Nicotine dependence, unspecified, uncomplicated; F32.9 Major depressive disorder, single episode, unspecified; K21.9 Gastro-esophageal reflux disease without esophagitis; M99.83 Other biomechanical lesions of lumbar region; Z79.899 Other long term (current) drug therapy
CPT/HCPCS: 62323; 81025; J0702; J2795; Q9966; J2001

== ENCOUNTER 2018-07-10 10:22 | Day surgery (SDC) | payer MEDICAID ==
[2018-07-10] MEDS ORDERED: Betamethasone Acetate/Betamethasone Sod Phosphate 30 MG/5 ML MDV ONE (11:42)
[2018-07-10] MEDS ORDERED: Iopamidol 408 MG/ML 50 ML SDV ONE (11:42)
[2018-07-10] MEDS ORDERED: Lidocaine 2% 5 ML SDV ONE (11:42)
[2018-07-10] MEDS ORDERED: Ropivacaine 0.5% 5 MG/ML 30 ML SDV ONE (11:42)
--- NOTE | 2018-07-11 08:59 | OR ---
SURGEON: Lorie Posada D.O. DATE OF PROCEDURE: 07/10/2018 OR STAFF PRESENT: 1. Sharda Sampson RN. 2. Elida King RN. 3. RT Nirali. WOUND CLASS: I. PREOPERATIVE DIAGNOSES: 1. Lumbar herniated disk. 2. Lumbar radiculopathy. 3. Lumbar spinal stenosis. POSTOPERATIVE DIAGNOSES: 1. Lumbar herniated disk. 2. Lumbar radiculopathy. 3. Lumbar spinal stenosis. PROCEDURES PERFORMED: 1. Caudal epidural steroid injection. 2. Fluoroscopic guidance for needle placement. 3. Local with oral Valium for sedation. SCREENING QUESTIONS: The patient answered "no" to all of the following questions: 1. Are you allergic to latex? 2. Do you have a bleeding disorder? 3. Do you have any current local or systemic infections? 4. Are you taking any anti-inflammatories or blood thinners? 5. Do you have any joint replacements, heart valve replacements, or a pacemaker? DESCRIPTION OF PROCEDURE: The patient had the procedure thoroughly explained including all possible risks, benefits and alternatives. Consent was signed in my clinic indicating understanding and willingness to proceed. The patient presented to [facility] and was escorted to the dressing room to disrobe and change into a hospital gown. Preoperative vital signs were taken and stable. The patient reported that Valium was taken prior to the procedure. The patient was brought back to the procedure room and placed in the prone position on the procedure room table. A pillow was placed under the hips in order to flatten the lumbar lordosis. The back was prepped with ChloraPrep and sterilely draped. All personnel in the operating room were dressed in appropriate attire including surgical scrubs, head and shoe covers. This was to ensure sterility while in the treatment room. During the time fluoroscopy was in use, all personnel in the operating room wore lead dodson with thyroid collars. Sterile technique was used throughout the procedure. The patient was awake and conversant throughout the procedure. There was no evidence of infection at the site of needle insertion. Skeletal landmarks were identified under fluoroscopy for the lumbar epidural. Skin was anesthetized with 2% lidocaine with a sterile 27-gauge 1.5 inch needle. Then, a 20-gauge Tuohy epidural needle was placed in the epidural space with loss of resistance technique under fluoroscopic guidance. No heme, cerebrospinal fluid, or paresthesias were noted. Isovue-200 contrast dye was injected in 0.2 cubic centimeter increments and seen to outline the epidural space in both AP and lateral views. There was no intravascular flow pattern observed under live fluoroscopy. Then, 12 milligrams of Celestone was slowly injected after negative aspiration. The patient tolerated the procedure well. Vital signs were stable during and after the procedure. The staff escorted the patient to the recovery area and the patient was released in stable condition after a brief stay in the recovery room monitored by the nurse. The patient was given both oral and written discharge and follow up instructions with recommendation to follow up given for 2-3 weeks. The patient voiced understanding including understanding of those signs and symptoms that would require emergency care. The patient knows how to contact the office if there are any additional problems or questions in the meantime. PREOPERATIVE PAIN: 7/10. POSTOPERATIVE PAIN: 2/10. FOLLOWUP: Follow up in the pain clinic in 3 weeks. ARIAN / EMIGDIO /[id number]
== END 2018-07-10 13:23 ==
LOC: MW.SDS 10:22
PROVIDERS: ATTEND Anesthesiology
DX: M51.16 Intervertebral disc disorders with radiculopathy, lumbar region (principal); M48.061 Spinal stenosis, lumbar region without neurogenic claudication
CPT/HCPCS: 62323; 81025; J0702; J2795; Q9966; J2001

== ENCOUNTER 2018-08-19 10:37 | Day surgery (SDC) | payer MEDICAID ==
[2018-08-19] MEDS ORDERED: Ropivacaine 0.5% 5 MG/ML 30 ML SDV ONE (10:58)
[2018-08-19] MEDS ORDERED: Lidocaine 2% 5 ML SDV ONE (10:58)
[2018-08-19] MEDS ORDERED: Betamethasone Acetate/Betamethasone Sod Phosphate 30 MG/5 ML MDV ONE (10:58)
--- NOTE | 2018-08-21 00:44 | OR ---
SURGEON: Lorie Posada D.O. DATE OF PROCEDURE: 08/19/2018 PRIMARY SURGEON: Lorie Posada DO OPERATING ROOM STAFF PRESENT: 1. Violetta Moctezuma RN. 2. Elida Ramsay RN. 3. RT Nirali. WOUND CLASS: I. PREOPERATIVE DIAGNOSES: 1. Chronic low back pain. 2. L5-S1 radiculopathy. 3. Lumbar L5-S1 herniated disk. 4. Lumbar transitional vertebrae. 5. Lumbar sacralization. POSTOPERATIVE DIAGNOSES: 1. Chronic low back pain. 2. L5-S1 radiculopathy. 3. Lumbar L5-S1 herniated disk. 4. Lumbar transitional vertebrae. 5. Lumbar sacralization. PROCEDURES PERFORMED: 1. Caudal epidural steroid injection. 2. Fluoroscopic guidance for needle placement. 3. Local with oral Valium for sedation. PREOPERATIVE PAIN: 5+/10. POSTOPERATIVE PAIN: 0/10. FOLLOWUP: In the Pain Clinic in 3 weeks. SCREENING QUESTIONS: The patient answered "no" to all of the following questions: 1. Are you allergic to latex? 2. Do you have a bleeding disorder? 3. Do you have any current local or systemic infections? 4. Are you taking any anti-inflammatories or blood thinners? 5. Do you have any joint replacements, heart valve replacements, or a pacemaker? DESCRIPTION OF PROCEDURE: The patient had the procedure thoroughly explained including all possible risks, benefits and alternatives. Consent was signed in my clinic indicating understanding and willingness to proceed. The patient presented to [facility] and was escorted to the dressing room to disrobe and change into a hospital gown. Preoperative vital signs were taken and stable. The patient reported that Valium was taken prior to the procedure. The patient was brought back to the procedure room and placed in the prone position on the procedure room table. A pillow was placed under the hips in order to flatten the lumbar lordosis. The back was prepped with ChloraPrep and sterilely draped. All personnel in the operating room were dressed in appropriate attire including surgical scrubs, head and shoe covers. This was to ensure sterility while in the treatment room. During the time fluoroscopy was in use, all personnel in the operating room wore lead dodson with thyroid collars. Sterile technique was used throughout the procedure. The patient was awake and conversant throughout the procedure. There was no evidence of infection at the site of needle insertion. Skeletal landmarks were identified under fluoroscopy for the caudal epidural. Skin was anesthetized with 2% lidocaine with a sterile 27-gauge 1.5 inch needle. Then a 20-gauge Tuohy epidural needle was placed in the epidural space with loss of resistance technique under fluoroscopic guidance. No heme, cerebrospinal fluid, or paresthesias were noted. Isovue-200 contrast dye was injected in 0.2 cubic centimeter increments and seen to outline the epidural space in both AP and lateral views. There was no intravascular flow pattern observed under live fluoroscopy. Then 12 milligrams of Celestone was slowly injected after negative aspiration. The patient tolerated the procedure well. Vital signs were stable during and after the procedure. The staff escorted the patient to the recovery area and the patient was released in stable condition after a brief stay in the recovery room monitored by the nurse. The patient was given both oral and written discharge and follow up instructions with recommendation to follow up given for 2-3 weeks. The patient voiced understanding including understanding of those signs and symptoms that would require emergency care. The patient knows how to contact the office if there are any additional problems or questions in the meantime. ARIAN / EMIGDIO /[id number] PETAR
== END 2018-08-19 14:17 | disposition home or self-care (01) ==
LOC: MW.SDS 10:37
PROVIDERS: ATTEND Anesthesiology
DX: G89.29 Other chronic pain (principal); M54.5 Low back pain; M51.17 Intervertebral disc disorders with radiculopathy, lumbosacral region; M48.061 Spinal stenosis, lumbar region without neurogenic claudication; M79.18 Myalgia, other site; Q76.49 Other congenital malformations of spine, not associated with scoliosis; K21.9 Gastro-esophageal reflux disease without esophagitis; F32.9 Major depressive disorder, single episode, unspecified; F17.200 Nicotine dependence, unspecified, uncomplicated; Z79.899 Other long term (current) drug therapy
CPT/HCPCS: 62323; 81025; J0702; J2001; J2795

== ENCOUNTER 2018-11-18 11:28 | Day surgery (SDC) | payer MEDICAID ==
[~2018-11-18 11:28] MED LIST changes: +Betamethasone Acetate/Betamethasone Sod Phosphate 30 MG/5 ML MDV EPIDUR ONE; -Betamethasone Acetate/Betamethasone Sod Phosphate 30 MG/5 ML MDV ONE; +Iopamidol 200-M 10 ML vial ITHECAL ONE; +Iopamidol 408 MG/ML 20 ML SDV ITHECAL ONE; -Iopamidol 408 MG/ML 50 ML SDV ONE; -Lidocaine 2% 5 ML SDV ONE; +Ropivacaine 0.5% 5 MG/ML 30 ML SDV EPIDUR ONE; +Ropivacaine 0.5% 5 MG/ML 30 ML SDV INJECT ONE; -Ropivacaine 0.5% 5 MG/ML 30 ML SDV ONE
--- NOTE | 2018-11-18 18:49 | OR ---
SURGEON: Lorie Posada D.O. DATE OF PROCEDURE: 11/18/2018 PRIMARY SURGEON: Lorie Posada D.O. ASSISTANTS: OR staff present: 1. Violetta Moctezuma RN. 2. Elida King RN. 3. Sylvie Bartlett RN. 4. Milka Landaverde RT. WOUND CLASS: I. PREOPERATIVE DIAGNOSES: 1. Lumbar herniated disk. 2. Lumbar radiculopathy. 3. Chronic lumbosacral back pain, status post trauma. 4. Coccydynia. 5. Transitional vertebrae. POSTOPERATIVE DIAGNOSES: 1. Lumbar herniated disk. 2. Lumbar radiculopathy. 3. Chronic lumbosacral back pain, status post trauma. 4. Coccydynia. 5. Transitional vertebrae. PROCEDURE PERFORMED: 1. Caudal epidural steroid injection. 2. Fluoroscopic guidance for needle placement. 3. Local with oral Valium for sedation. SCREENING QUESTIONS: The patient answered "no" to all of the following questions: 1. Are you allergic to latex? 2. Do you have a bleeding disorder? 3. Do you have any current local or systemic infections? 4. Are you taking any anti-inflammatories or blood thinners? 5. Do you have any joint replacements, heart valve replacements, or a pacemaker? DESCRIPTION OF PROCEDURE: The patient had the procedure thoroughly explained including all possible risks, benefits and alternatives. Consent was signed in my clinic indicating understanding and willingness to proceed. The patient presented to [facility] and was escorted to the dressing room to disrobe and change into a hospital gown. Preoperative vital signs were taken and stable. The patient reported that Valium was taken prior to the procedure. The patient was brought back to the procedure room and placed in the prone position on the procedure room table. A pillow was placed under the hips in order to flatten the lumbar lordosis. The back was prepped with ChloraPrep and sterilely draped. All personnel in the operating room were dressed in appropriate attire including surgical scrubs, head and shoe covers. This was to ensure sterility while in the treatment room. During the time fluoroscopy was in use, all personnel in the operating room wore lead dodson with thyroid collars. Sterile technique was used throughout the procedure. The patient was awake and conversant throughout the procedure. There was no evidence of infection at the site of needle insertion. Skeletal landmarks were identified under fluoroscopy for the caudal epidural. Skin was anesthetized with 2% lidocaine with a sterile 27-gauge 1.5 inch needle. Then a 20-gauge Tuohy epidural needle was placed in the epidural space with loss of resistance technique under fluoroscopic guidance. No heme, cerebrospinal fluid, or paresthesias were noted. Isovue-200 contrast dye was injected in 0.2 cubic centimeter increments and seen to outline the epidural space in both AP and lateral views. There was no intravascular flow pattern observed under live fluoroscopy. Then 12 milligrams of Celestone was slowly injected after negative aspiration. The patient tolerated the procedure well. Vital signs were stable during and after the procedure. The staff escorted the patient to the recovery area and the patient was released in stable condition after a brief stay in the recovery room monitored by the nurse. The patient was given both oral and written discharge and follow up instructions with recommendation to follow up given for 2-3 weeks. The patient voiced understanding including understanding of those signs and symptoms that would require emergency care. The patient knows how to contact the office if there are any additional problems or questions in the meantime. PREOPERATIVE PAIN: 5/10. POSTOPERATIVE PAIN: 0/10. FOLLOWUP: In the Pain Clinic in 3 weeks. ARIAN / EMIGDIO /[id number] PETAR
== END 2018-11-18 13:30 | disposition home or self-care (01) ==
LOC: MW.SDS 11:28
PROVIDERS: ATTEND Anesthesiology
DX: G89.29 Other chronic pain (principal); M54.5 Low back pain; M51.16 Intervertebral disc disorders with radiculopathy, lumbar region; M51.17 Intervertebral disc disorders with radiculopathy, lumbosacral region; M53.3 Sacrococcygeal disorders, not elsewhere classified; M79.18 Myalgia, other site; M48.061 Spinal stenosis, lumbar region without neurogenic claudication; Q76.49 Other congenital malformations of spine, not associated with scoliosis; K21.9 Gastro-esophageal reflux disease without esophagitis; F17.200 Nicotine dependence, unspecified, uncomplicated; F32.9 Major depressive disorder, single episode, unspecified; Z79.891 Long term (current) use of opiate analgesic; Z79.899 Other long term (current) drug therapy
CPT/HCPCS: 62323; J0702; J2795; Q9966

== ENCOUNTER 2018-11-29 18:46 | Emergency (ER) | payer MEDICAID ==
--- NOTE | 2018-11-29 19:16 | EDM.PDOC ---
ED HPI GENERAL MEDICAL PROBLEM - General Chief Complaint: General Stated Complaint: Rib injury Time Seen by Provider: 11/29/18 18:50 Source of Information: Reports: Patient History Limitations: Reports: No Limitations - History of Present Illness INITIAL COMMENTS - FREE TEXT/NARRATIVE: HISTORY AND PHYSICAL: History of present illness: Patient is a 33-year-old female presents to the ED today with concern of left- sided rib pain / injury since yesterday. Patient states that she was loading objects out of the back of her vehicle when part of her spare tire had started falling out of the back of the vehicle. She states that she had tried to hold the tire with her left side so it wouldn't fall out of the vehicle. Patient states that since then she's had left-sided rib pain which is worse if she takes a deep breath in. Patient states she does have a history of asthma and is a heavy smoker and has been for several years. Patient states she also vapes with marijuana. She denies any other substance use. Denies feeling short of breath. Patient denies fever, chills, shortness of breath, or cough. Denies headache, neck stiff ness, change in vision, syncope, or near syncope. Denies nausea, vomiting, abdominal pain, diarrhea, constipation, or dysuria. Has not noted any blood in urine or stool. Patient has been eating and drinking appropriately. Review of systems: As per history of present illness and below otherwise all systems reviewed and negative. Past medical history: As per history of present illness and as reviewed below otherwise noncontributory. Surgical history: As per history of present illness and as reviewed below otherwise noncontributory. Social history: See social history for further information Family history: As per history of present illness and as reviewed below otherwise noncontributory. Physical exam: General: Patient is alert, oriented, and in no acute distress. Patient sitting comfortably on exam table. HEENT: Atraumatic, normocephalic, pupils equal and reactive bilaterally, negative for conjunctival pallor or scleral icterus, mucous membranes moist, TMs normal bilaterally, throat clear, neck supple, nontender, trachea midline. No drooling or trismus noted. No meningeal signs. No hot potato voice noted. Lungs: Clear to auscultation, breath sounds equal bilaterally. Pain with palpation of ribs #8 through 10 on the left side. No obvious deformities of the chest or the ribs. Heart: S1S2, regular rate and rhythm without overt murmur Abdomen: Soft, nondistended, nontender. Negative for masses or hepatosplenomegaly. Negative for costovertebral tenderness. Pelvis: Stable nontender. Genitourinary: Deferred. Rectal: Deferred. Skin: Intact, warm, dry. No lesions or rashes noted. Extremities: Atraumatic, negative for cords or calf pain. Neurovascular unremarkable. Neuro: Awake, alert, oriented. Cranial nerves II through XII unremarkable. Cerebellum unremarkable. Motor and sensory unremarkable throughout. Exam nonfocal. Notes: Discussed the importance for follow with primary care provider. Voices understanding and is agreeable to plan of care. Denies any further questions or concerns at this time. Diagnostics: Chest XR with left ribs XR Therapeutics: Toradol Prescription: Diclofenac Impression: Left-sided rib injury Plan: 1. Rest, ice the affected area. You can apply ice 15 minutes on, 15 minutes off. 2. Tylenol as directed for pain management or discomfort. Take medication as prescribed. 3. Follow up with the primary care provider as discussed. Return to the ED as needed and as discussed. Definitive disposition and diagnosis as appropriate pending reevaluation and review of above. Left Abdominal Pain Score (Numeric/FACES): 5 - Related Data Allergies Allergy/AdvReac Type Severity Reaction Status Date / Time Dial soap Allergy Difficulty Uncoded 11/29/18 18:56 Breathing Home Meds: Home Meds Omeprazole 40 mg PO DAILY 11/02/14 [History] Albuterol [Proventil HFA] 1 puff INH ASDIRECTED PRN 12/18/17 [History] traMADol HCl [Tramadol HCl] 50 mg PO Q6H PRN 04/15/18 [History] Cyclobenzaprine [Flexeril] 10 tab PO BID PRN 04/28/18 [History] Diclofenac Sodium [Voltaren] 75 mg PO BIDMEALS PRN #10 tab.cr 11/29/18 [Rx] Ondansetron [Zofran] 4 mg PO ASDIRECTED 11/29/18 [History] Orphenadrine Citrate [Orphenadrine Citrate ER] 100 mg PO BID 11/29/18 [History] Past Medical History - Past Health History Medical/Surgical History: Denies Medical/Surgical History Other HEENT History: Maxillary Sinusitis Cardiovascular History: Reports: None Respiratory History: Reports: Asthma, Bronchitis, Recurrent Other Respiratory History: Nicotine Dependence 15 yr history of smoking, current use <1 pack per day Gastrointestinal History: Reports: GERD Other Gastrointestinal History: Heartburn / GERD, Fatty food intolerence, Epigastric pain, Internal hemorrhoid UROLOGY SURGEON 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 UROLOGY SURGEON History: Acute Pelvic Inflammatory disease, cyst on right ovary, IUD in past Neurological 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 (See Below) Other Neuro History: pinched nerve Psychiatric History: Reports: Anxiety, Depression, Other (See Below) Other Psychiatric History: Schizo-affective disorder, Borderline personality disorder with social anxiety- manages on an ongoing basis at Endocrine/Metabolic History: Reports: Obesity/BMI 30+, Other (See Below) Other Endocrine/Metabolic History: Hypoglycemia Other Immunologic History: Toxoplasmosis Other Dermatologic History: Psoriasis of Scalp - Infectious Disease History Infectious Disease History: Reports: Chicken Pox - Past Surgical History GI Surgical History: Reports: Cholecystectomy, Colonoscopy, EGD Neurological Surgical History: Reports: None Musculoskeletal Surgical History: Reports: Ganglion Cyst Social & Family History - Family History Family Medical History: Noncontributory Neurological: Reports: CVA - Tobacco Use Smoking Status *Q: Current Every Day Smoker Years of Tobacco use: 15 Packs/Tins Daily: 0.5 - Caffeine Use Caffeine Use: Reports: Soda Caffeine Use Comment: several per day - Recreational Drug Use Recreational Drug Use: Yes Recreational Drug Type: Reports: Marijuana/Hashish Recreational Drug Use Frequency: Daily ED ROS GENERAL - Review of Systems Review Of Systems: ROS reveals no pertinent complaints other than HPI. ED EXAM, GENERAL - Physical Exam Exam: See Below (See dictation) Course - Vital Signs Last Recorded V/S: Last Vital Signs Temp 35.9 C 11/29/18 18:59 Pulse 103 H 11/29/18 18:59 Resp 22 H 11/29/18 18:59 BP 153/89 H 11/29/18 18:59 Pulse Ox 99 11/29/18 18:59 - Orders/Labs/Meds Meds: Medications Discontinued Medications Generic Name Dose Route Start Last Admin Trade Name Freq PRN Reason Stop Dose Admin Ketorolac Tromethamine 60 mg 11/29/18 19:57 Toradol IM 11/29/18 19:58 ONETIME ONE Departure - Departure Time of Disposition: 19:58 Disposition: Home, Self-Care 01 Clinical Impression: Rib injury - Discharge Information Prescriptions: Diclofenac Sodium [Voltaren] 75 mg PO BIDMEALS PRN #10 tab.cr PRN Reason: Pain Instructions: Rib Contusion Referrals: Adrienne Sheehan RESIDENTIAL CAREGIVER [Primary Care Provider] - Forms: ED Department Discharge Additional Instructions: The following information is given to patients seen in the emergency department who are being discharged to home. This information is to outline your options for follow-up care. We provide all patients seen in our emergency department with a follow-up referral. The need for follow-up, as well as the timing and circumstances, are variable depending upon the specifics of your emergency department visit. If you don't have a primary care physician on staff, we will provide you with a referral. We always advise you to contact your personal physician following an emergency department visit to inform them of the circumstance of the visit and for follow-up with them and/or the need for any referrals to a consulting specialist. The emergency department will also refer you to a specialist when appropriate. This referral assures that you have the opportunity for follow-up care with a specialist. All of these measure are taken in an effort to provide you with optimal care, which includes your follow-up. Under all circumstances we always encourage you to contact your private physician who remains a resource for coordinating your care. When calling for follow-up care, please make the office aware that this follow-up is from your recent emergency room visit. If for any reason you are refused follow-up, please contact the [facility] Emergency Department at and asked to speak to the emergency department charge nurse. [facility] [address] [place] [id number] [address] [id number] 1. You can alternate ibuprofen and Tylenol as directed for pain and discomfort. Take medication as prescribed. 2. Follow-up with your primary care provider and women's health provider as discussed. Return to the ED as needed and as discussed
[2018-11-29] MEDS ORDERED: Ketorolac 60 MG/2 ML SDV IM ONE (19:57)
--- NOTE | 2018-11-29 19:57 | CR ---
INDICATION: Pain following trauma TECHNIQUE: Chest and left ribs 4 views. COMPARISON: None FINDINGS: Cardiovascular and mediastinum: Heart size and vasculature are normal in caliber and appearance. Mediastinum is within normal limits. Lungs and pleural spaces: Lungs are clear. No sign of infiltrate or mass. No sign of pleural effusion. No pneumothorax. Bones and soft tissues: Detailed oblique images of the left ribs demonstrate no fractures or bone lesions. IMPRESSION: Unremarkable chest and left ribs. Dictated by Niko Munoz MD @ 11/29/2018 7:55:04 PM Dictated by: Niko Munoz MD @ 11/29/2018 19:55:09 (Electronically Signed)
[2018-11-29 20:07] VITALS: BP 130/85; PULSE 82
== END 2018-11-29 20:20 | disposition home or self-care (01) ==
LOC: MW.ED 18:46
DX: S29.9XXA Unspecified injury of thorax, initial encounter (principal); K21.9 Gastro-esophageal reflux disease without esophagitis; J45.909 Unspecified asthma, uncomplicated; F41.9 Anxiety disorder, unspecified; F32.9 Major depressive disorder, single episode, unspecified; F17.210 Nicotine dependence, cigarettes, uncomplicated; Z79.899 Other long term (current) drug therapy; Z91.09 Other allergy status, other than to drugs and biological substances; X50.0XXA Overexertion from strenuous movement or load, initial encounter
CPT/HCPCS: 71101; 96372; 99283; J1885

== ENCOUNTER 2019-01-24 17:39 | Emergency (ER) | payer MEDICAID ==
--- NOTE | 2019-01-24 18:50 | EDM.PDOC ---
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 Patient states the first day of her last menstrual period was November 20, 2018. She states that she started having bright red vaginal bleeding on January 18, 2019 and quit bleeding on January 16, 2019. Patient states that she never did and at home urine test as "my pregnancies have never shown up on UPT's until late", she states that she thought she passed the products of conception, however she started bleeding right red blood vaginally 2 days ago. She states that she has been bleeding through either a tampon or a pad every hour. She is having generalized bilateral lower abdominal pain. It at a 3 out of 10, describing it as "pressure ". Patient states that she has been passed the quarter sized clots and has noticed "tissue". Patient states that she feels weak today, nauseous, feeling lightheaded, and having subjective fever and chills. Patient denies any headache, change in vision, syncope or near syncope. Denies any chest pain, back pain, shortness of breath or cough. Denies any nausea, vomiting, diarrhea, constipation or dysuria. Has not noted any blood in urine or stool. Patient has been eating and drinking appropriately. Review of systems: As per history of present illness and below otherwise all systems reviewed and negative. Past medical history: As per history of present illness and as reviewed below otherwise noncontributory. Surgical history: As per history of present illness and as reviewed below otherwise noncontributory. Social history: See social history for further information Family history: As per history of present illness and as reviewed below otherwise noncontributory. Physical exam: General: Patient is a well developed and well-nourished 33-year-old female. Alert and orientated. Nontoxic in appearance and in no acute distress. Vital signs have been reviewed by me. HEENT: Atraumatic, normocephalic, pupils equal and reactive bilaterally, negative for conjunctival pallor or scleral icterus, mucous membranes moist, TMs normal bilaterally, throat clear, neck supple, nontender, trachea midline. No drooling or trismus noted. No meningeal signs. No hot potato voice noted. Lungs: Clear to auscultation, breath sounds equal bilaterally, chest nontender. Heart: S1S2, regular rate and rhythm without overt murmur Abdomen: Soft, nondistended,tender to palpation in the bilateral lower quadrants. Negative for masses or hepatosplenomegaly. Negative for costovertebral tenderness. Pelvis: Stable nontender. Genitourinary: Deferred. Rectal: Deferred. Skin: Intact, warm, and slightly diaphoretic. No lesions or rashes noted. Extremities: Atraumatic, moves all extremities per self without difficulty or deficits, negative for cords or calf pain. Neurovascular unremarkable. Neuro: Awake, alert, oriented. Cranial nerves II through XII unremarkable. Cerebellum unremarkable. Motor and sensory unremarkable throughout. Exam nonfocal. Notes: Patient does have a slightly elevated white count. She is not . States she is requesting to have further imaging as she states her abdominal pain is abnormal. As the CT of the abdomen and pelvis shows no significant findings. Supportive care measures were reviewed and discussed. Voices understanding and is agreeable to plan of care. Denies any further questions or concerns at this time. Diagnostics: CBC, CMP, HCGU, HCG Quant, CT abd/pelvis, UA Therapeutics: Zofran ODT Prescription: None Impression: Dysfunctional Uterine Bleeding Plan: 1. Follow up with your OBGYN for further care and management 2. Increase your oral fluids. Position changes slowly. 3. Return to the ED as needed and as discussed. Definitive disposition and diagnosis as appropriate pending reevaluation and review of above. Lower Abdomen Pain Score (Numeric/FACES): 3 - Related Data Allergies Allergy/AdvReac Type Severity Reaction Status Date / Time Dial soap Allergy Difficulty Uncoded 01/24/19 18:02 Breathing Home Meds: Home Meds Omeprazole 40 mg PO DAILY 11/02/14 [History] Albuterol [Proventil HFA] 1 puff INH ASDIRECTED PRN 12/18/17 [History] traMADol HCl [Tramadol HCl] 50 mg PO Q6H PRN 04/15/18 [History] Cyclobenzaprine [Flexeril] 10 tab PO BID PRN 04/28/18 [History] Diclofenac Sodium [Voltaren] 75 mg PO BIDMEALS PRN #10 tab.cr 11/29/18 [Rx] Ondansetron [Zofran] 4 mg PO ASDIRECTED 11/29/18 [History] Orphenadrine Citrate [Orphenadrine Citrate ER] 100 mg PO BID 11/29/18 [History] Past Medical History - Past Health History Medical/Surgical History: Denies Medical/Surgical History Other HEENT History: Maxillary Sinusitis Cardiovascular History: Reports: None Respiratory History: Reports: Asthma, Bronchitis, Recurrent Other Respiratory History: Nicotine Dependence 15 yr history of smoking, current use <1 pack per day Gastrointestinal History: Reports: GERD Other Gastrointestinal History: Heartburn / GERD, Fatty food intolerence, Epigastric pain, Internal hemorrhoid [employer]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: Acute Pelvic Inflammatory disease, cyst on right ovary, IUD in past Neurological 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 (See Below) Other Neuro History: pinched nerve Psychiatric History: Reports: Anxiety, Depression, Other (See Below) Other Psychiatric History: Schizo-affective disorder, Borderline personality disorder with social anxiety- manages on an ongoing basis at Endocrine/Metabolic History: Reports: Obesity/BMI 30+, Other (See Below) Other Endocrine/Metabolic History: Hypoglycemia Other Immunologic History: Toxoplasmosis Other Dermatologic History: Psoriasis of Scalp - Infectious Disease History Infectious Disease History: Reports: Chicken Pox - Past Surgical History GI Surgical History: Reports: Cholecystectomy, Colonoscopy, EGD Neurological Surgical History: Reports: None Musculoskeletal Surgical History: Reports: Ganglion Cyst Social & Family History - Family History Family Medical History: Noncontributory Neurological: Reports: CVA - Tobacco Use Smoking Status *Q: Current Every Day Smoker Years of Tobacco use: 15 Packs/Tins Daily: 0.5 - Caffeine Use Caffeine Use: Reports: Soda Caffeine Use Comment: several per day - Recreational Drug Use Recreational Drug Use: Yes Recreational Drug Type: Reports: Marijuana/Hashish Recreational Drug Use Frequency: Daily ED ROS GENERAL - Review of Systems Review Of Systems: ROS reveals no pertinent complaints other than HPI. ED EXAM - Physical Exam Exam: See Below (See dictation) Course - Vital Signs Last Recorded V/S: Last Vital Signs Temp 98.0 F 01/24/19 18:00 Pulse 85 01/24/19 18:00 Resp 18 01/24/19 18:00 BP 144/90 H 01/24/19 18:00 Pulse Ox 96 01/24/19 18:00 Orthostatic Blood Pressure [ 127/75 Standing] Orthostatic Blood Pressure [ 134/82 Sitting] Orthostatic Blood Pressure [ 127/73 Supine] - Orders/Labs/Meds Orders: Active Orders 24 hr Category Date Time Status Orthostatic Vital Signs [RC] ASDIRECTED Care 01/24/19 18:51 Active Labs: Laboratory Tests 01/24/19 01/24/19 01/24/19 Range/Units 18:39 18:39 18:39 WBC 13.02 H (4.0-11.0) K/uL RBC 4.87 (4.30-5.90) M/uL Hgb 15.0 (12.0-16.0) g/dL Hct 45.7 (36.0-46.0) % MCV 93.8 (80.0-98.0) fL MCH 30.8 (27.0-32.0) pg MCHC 32.8 (31.0-37.0) g/dL RDW Std Deviation 46.4 (28.0-62.0) fl RDW Coeff of Abhishek 14 (11.0-15.0) % Plt Count 284 (150-400) K/uL MPV 10.80 (7.40-12.00) fL Neut % (Auto) 55.7 (48.0-80.0) % Lymph % (Auto) 33.4 (16.0-40.0) % Woodward % (Auto) 6.2 (0.0-15.0) % Eos % (Auto) 4.2 (0.0-7.0) % Baso % (Auto) 0.5 (0.0-1.5) % Neut # (Auto) 7.2 H (1.4-5.7) K/uL Lymph # (Auto) 4.4 H (0.6-2.4) K/uL Woodward # (Auto) 0.8 (0.0-0.8) K/uL Eos # (Auto) 0.6 (0.0-0.7) K/uL Baso # (Auto) 0.1 (0.0-0.1) K/uL Nucleated RBC % 0.0 /100WBC Nucleated RBCs # 0 K/uL Sodium 139 (136-145) mmol/L Potassium 4.0 (3.5-5.1) mmol/L Chloride 105 (98-107) mmol/L Carbon Dioxide 26.2 (21.0-32.0) mmol/L BUN 8 (7.0-18.0) mg/dL Creatinine 0.9 (0.6-1.0) mg/dL Est Cr Clr Drug Dosing 80.75 mL/min Estimated GFR (MDRD) > 60.0 ml/min Glucose 67 L (74-106) mg/dL Calcium 8.5 (8.5-10.1) mg/dL Total Bilirubin 0.1 L (0.2-1.0) mg/dL AST 10 L (15-37) IU/L ALT 15 (14-63) IU/L Alkaline Phosphatase 61 (46-116) U/L Total Protein 7.4 (6.4-8.2) g/dL Albumin 3.3 L (3.4-5.0) g/dL Globulin 4.1 H (2.6-4.0) g/dL Albumin/Globulin Ratio 0.8 L (0.9-1.6) HCG, Quant < 1.0 mIU/mL Urine Color Urine Appearance Urine pH (5.0-8.0) Ur Specific [place] (1.001-1.035) Urine Protein (NEGATIVE) mg/dL Urine Glucose (UA) (NEGATIVE) mg/dL Urine Ketones (NEGATIVE) mg/dL Urine Occult Blood (NEGATIVE) Urine Nitrite (NEGATIVE) Urine Bilirubin (NEGATIVE) Urine Urobilinogen (<2.0) EU/dL Ur Leukocyte Esterase (NEGATIVE) Urine RBC (0-2/HPF) Urine WBC (0-5/HPF) Ur Epithelial Cells (NONE-FEW) Urine Bacteria (NEGATIVE) Urine HCG, Qual (NEGATIVE) 01/24/19 01/24/19 Range/Units 18:50 18:57 WBC (4.0-11.0) K/uL RBC (4.30-5.90) M/uL Hgb (12.0-16.0) g/dL Hct (36.0-46.0) % MCV (80.0-98.0) fL MCH (27.0-32.0) pg MCHC (31.0-37.0) g/dL RDW Std Deviation (28.0-62.0) fl RDW Coeff of Abhishek (11.0-15.0) % Plt Count (150-400) K/uL MPV (7.40-12.00) fL Neut % (Auto) (48.0-80.0) % Lymph % (Auto) (16.0-40.0) % Woodward % (Auto) (0.0-15.0) % Eos % (Auto) (0.0-7.0) % Baso % (Auto) (0.0-1.5) % Neut # (Auto) (1.4-5.7) K/uL Lymph # (Auto) (0.6-2.4) K/uL Woodward # (Auto) (0.0-0.8) K/uL Eos # (Auto) (0.0-0.7) K/uL Baso # (Auto) (0.0-0.1) K/uL Nucleated RBC % /100WBC Nucleated RBCs # K/uL Sodium (136-145) mmol/L Potassium (3.5-5.1) mmol/L Chloride (98-107) mmol/L Carbon Dioxide (21.0-32.0) mmol/L BUN (7.0-18.0) mg/dL Creatinine (0.6-1.0) mg/dL Est Cr Clr Drug Dosing mL/min Estimated GFR (MDRD) ml/min Glucose (74-106) mg/dL Calcium (8.5-10.1) mg/dL Total Bilirubin (0.2-1.0) mg/dL AST (15-37) IU/L ALT (14-63) IU/L Alkaline Phosphatase (46-116) U/L Total Protein (6.4-8.2) g/dL Albumin (3.4-5.0) g/dL Globulin (2.6-4.0) g/dL Albumin/Globulin Ratio (0.9-1.6) HCG, Quant mIU/mL Urine Color YELLOW Urine Appearance SLT CLOUDY Urine pH 5.0 (5.0-8.0) Ur Specific [place] 1.025 (1.001-1.035) Urine Protein NEGATIVE (NEGATIVE) mg/dL Urine Glucose (UA) NEGATIVE (NEGATIVE) mg/dL Urine Ketones NEGATIVE (NEGATIVE) mg/dL Urine Occult Blood LARGE H (NEGATIVE) Urine Nitrite NEGATIVE (NEGATIVE) Urine Bilirubin NEGATIVE (NEGATIVE) Urine Urobilinogen 0.2 (<2.0) EU/dL Ur Leukocyte Esterase NEGATIVE (NEGATIVE) Urine RBC 17-22 (0-2/HPF) Urine WBC 0-2 (0-5/HPF) Ur Epithelial Cells MODERATE (NONE-FEW) Urine Bacteria RARE (NEGATIVE) Urine HCG, Qual NEGATIVE (NEGATIVE) Meds: Medications Discontinued Medications Generic Name Dose Route Start Last Admin Trade Name Ky PRN Reason Stop Dose Admin Ondansetron HCl 4 mg 01/24/19 18:51 01/24/19 19:03 Zofran Odt PO 01/24/19 18:52 4 mg ONETIME ONE Administration Departure - Departure Time of Disposition: 20:15 Disposition: Home, Self-Care 01 Clinical Impression: Dysfunctional uterine bleeding - Discharge Information Instructions: Abnormal Uterine Bleeding, [id number] Referrals: PCP,None [Primary Care Provider] - Forms: ED Department Discharge Additional Instructions: The following information is given to patients seen in the emergency department who are being discharged to home. This information is to outline your options for follow-up care. We provide all patients seen in our emergency department with a follow-up referral. The need for follow-up, as well as the timing and circumstances, are variable depending upon the specifics of your emergency department visit. If you don't have a primary care physician on staff, we will provide you with a referral. We always advise you to contact your personal physician following an emergency department visit to inform them of the circumstance of the visit and for follow-up with them and/or the need for any referrals to a consulting specialist. The emergency department will also refer you to a specialist when appropriate. This referral assures that you have the opportunity for follow-up care with a specialist. All of these measure are taken in an effort to provide you with optimal care, which includes your follow-up. Under all circumstances we always encourage you to contact your private physician who remains a resource for coordinating your care. When calling for follow-up care, please make the office aware that this follow-up is from your recent emergency room visit. If for any reason you are refused follow-up, please contact the [facility] Emergency Department at and asked to speak to the emergency department charge nurse. [facility] [address] [place] [address] [facility] [address] [place] [id number] 1. Follow up with your OBGYN for further care and management 2. Increase your oral fluids. Position changes slowly. 3. Return to the ED as needed and as discussed. - My Orders Last 24 Hours: My Active Orders 01/24/19 18:51 Orthostatic Vital Signs [RC] ASDIRECTED - Assessment/Plan Last 24 Hours: My Active Orders 01/24/19 18:51 Orthostatic Vital Signs [RC] ASDIRECTED
[2019-01-24] MEDS ORDERED: Ondansetron 4 MG Tab.DIS PO ONE (18:51)
[2019-01-24 19:09] LABS: BLOOD UREA NITROGEN,BUN 8 mg/dL (7.0-18.0); CARBON DIOXIDE,CO2 26.2 mmol/L (21.0-32.0); CHLORIDE,CL 105 mmol/L (98-107); GLUCOSE RANDOM 67 mg/dL (74-106); SODIUM,NA 139 mmol/L (136-145)
--- NOTE | 2019-01-24 20:07 | CT ---
INDICATION: 33 year-old female. Possible miscarriage. No other history provided. TECHNIQUE: Noncontrast CT of the abdomen and pelvis. COMPARISON: None. Correlation is made with a previous abdominal pelvic CT report September 21, 2014 FINDINGS: There is air within the region of the cervix and vaginal fornix. This may be related to recent instrumentation/visual inspection or even physical examination. The unenhanced uterus is grossly unremarkable. No intrauterine device. The previous CT report mentioned an IUD. No adnexal masses or free pelvic fluid. No free air. No bowel obstruction ileus. No evidence for appendicitis or diverticular disease. No hydronephrosis or splenomegaly. The unenhanced liver, pancreas, and adrenal glands are normal. Surgically absent gallbladder new reportedly when correlated with the previous report. Normal caliber aorta. Normal inferior vena cava. Clear included lung bases. Normal included skeleton. IMPRESSION: 1. Air within the cervix and a right vaginal fornix. This may be due to recent instrumentation/physical examination. Please correlate clinically. 2. There is no evidence for intrauterine . There are no adnexal masses, free pelvic fluid, or free air. 3. Absent gallbladder. Please note that all CT scans at this facility use dose modulation, iterative reconstruction, and/or weight-based dosing when appropriate to reduce radiation dose to as low as reasonably achievable. Dictated by Lalo Keith MD @ Jan 24 2019 8:01PM Signed by Dr. Lalo Keith @ Jan 24 2019 8:06PM
[2019-01-24 20:33] VITALS: BP 117/81; PULSE 78
== END 2019-01-24 20:33 | disposition home or self-care (01) ==
LOC: MW.ED 17:39
DX: N93.8 Other specified abnormal uterine and vaginal bleeding (principal); K21.9 Gastro-esophageal reflux disease without esophagitis; F17.210 Nicotine dependence, cigarettes, uncomplicated; E66.9 Obesity, unspecified; Z68.33 Body mass index [BMI] 33.0-33.9, adult; Z91.048 Other nonmedicinal substance allergy status
CPT/HCPCS: 36415; 74176; 80053; 81001; 81025; 84702; 85025; 99284; A9270

== ENCOUNTER 2019-10-19 07:28 | Emergency (ER) | payer MEDICAID ==
[2019-10-19] MEDS ORDERED: Diazepam 5 MG Tab PO ONE (08:08)
[2019-10-19] MEDS ORDERED: Ibuprofen 800 MG Tab PO ONE (08:08)
--- NOTE | 2019-10-19 08:15 | EDM.PDOC ---
ED HPI GENERAL MEDICAL PROBLEM - General Chief Complaint: Upper Extremity Injury/Pain Stated Complaint: RT ARM PAIN Time Seen by Provider: 10/19/19 07:45 - History of Present Illness INITIAL COMMENTS - FREE TEXT/NARRATIVE: History of present illness: Patient presents complaining of pain in her right humerus. She says the pain began spontaneously in the night yesterday she lifted a heavy air conditioning unit but has not had any traumas no falls the pain starts in the musculature of the shoulder and radiates into the upper humerus. There is no swelling no rash good distal pulse motor and sensation are present she has chronic pain issues is under a pain contract with a pain specialist. Is been no fever nausea vomiting or chills patient is tearful but is moving her arm actively in all planes of motion. She is very animated and frequently using foul language. Review of systems: As per history of present illness and below otherwise all systems reviewed and negative. Past medical history: As per history of present illness and as reviewed below otherwise noncontributory. Surgical history: As per history of present illness and as reviewed below otherwise noncontributory. Social history: No reported history of drug or alcohol abuse. Family history: As per history of present illness and as reviewed below otherwise noncontributory. Physical exam: HEENT: Atraumatic, normocephalic, pupils reactive, negative for conjunctival pallor or scleral icterus, mucous membranes moist, throat clear, neck supple, nontender, trachea midline. Lungs: Clear to auscultation, breath sounds equal bilaterally, chest nontender. Heart: S1S2, regular, negative for clicks, rubs, or JVD. Abdomen: Soft, nondistended, nontender. Negative for masses or hepatosplenomegaly. Negative for costovertebral tenderness. Pelvis: Stable nontender. Genitourinary: Deferred. Rectal: Deferred. Extremities: Atraumatic, negative for cords or calf pain. Neurovascular unremarkable. Older girdle muscles are fully intact there is good distal pulse motor and sensation in the arm there is no evidence of ecchymosis trauma there is full range of active motion when distracted she does not appear to be hurting with moving the arm Neuro: Awake, alert, oriented. Cranial nerves II through XII unremarkable. Cerebellum unremarkable. Motor and sensory unremarkable throughout. Exam nonfocal. No upper extremity or lower extremity weakness. Neck: The neck does not have any midline tenderness but there is spasm and tenderness to the lateral paraspinal musculature at the level of C6 and C7 and the muscles of the trapezius are tender. Diagnostics: [] Therapeutics: [] Impression: [] Plan: Neck pain with radiculopathy [] Definitive disposition and diagnosis as appropriate pending reevaluation and review of above. Right Upper Arm Pain Score (Numeric/FACES): 10 - Related Data Allergies Allergy/AdvReac Type Severity Reaction Status Date / Time No Known Allergies Allergy Verified 10/19/19 07:48 Home Meds: Home Meds Omeprazole 40 mg PO DAILY 11/02/14 [History] Albuterol [Proventil HFA] 1 puff INH ASDIRECTED PRN 12/18/17 [History] traMADol HCl [Tramadol HCl] 50 mg PO Q6H PRN 04/15/18 [History] Cyclobenzaprine [Flexeril] 10 tab PO BID PRN 04/28/18 [History] Ondansetron [Zofran] 4 mg PO ASDIRECTED PRN 11/29/18 [History] Orphenadrine Citrate [Orphenadrine Citrate ER] 100 mg PO BID 11/29/18 [History] Cyclobenzaprine [Flexeril] 10 mg PO TID #30 tab 10/19/19 [Rx] LORazepam [Ativan] 0.5 mg PO ASDIRECTED PRN 10/19/19 [History] busPIRone HCl [busPIRone] 30 mg PO BID 10/19/19 [History] predniSONE 60 mg PO WITHBREAKFAST 5 Days #15 tab 10/19/19 [Rx] Past Medical History - Past Health History Medical/Surgical History: Denies Medical/Surgical History Other HEENT History: Maxillary Sinusitis Cardiovascular History: Reports: None Respiratory History: Reports: Asthma, Bronchitis, Recurrent Other Respiratory History: Nicotine Dependence 15 yr history of smoking, current use <1 pack per day Gastrointestinal History: Reports: GERD Other Gastrointestinal History: Heartburn / GERD, Fatty food intolerence, Epigastric pain, Internal hemorrhoid Genitourinary History: Reports: None 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: Acute Pelvic Inflammatory disease, cyst on right ovary, IUD in past Musculoskeletal History: Reports: None Neurological 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 (See Below) Other Neuro History: Pinched Nerve Psychiatric History: Reports: Anxiety, Depression, Other (See Below) Other Psychiatric History: Schizo-affective disorder, Borderline personality disorder with social anxiety- manages on an ongoing basis at Endocrine/Metabolic History: Reports: Obesity/BMI 30+, Other (See Below) Other Endocrine/Metabolic History: Hypoglycemia Hematologic History: Reports: None Immunologic History: Reports: None Other Immunologic History: Toxoplasmosis Oncologic (Cancer) History: Reports: None Dermatologic History: Reports: None Other Dermatologic History: Psoriasis of Scalp - Infectious Disease History Infectious Disease History: Reports: None - Past Surgical History Head Surgeries/Procedures: Reports: None GI Surgical History: Reports: Cholecystectomy, Colonoscopy, EGD Female Surgical History: Reports: None Neurological Surgical History: Reports: None Musculoskeletal Surgical History: Reports: Ganglion Cyst Oncologic Surgical History: Reports: None Dermatological Surgical History: Reports: None Social & Family History - Family History Family Medical History: Noncontributory Neurological: Reports: CVA - Tobacco Use Smoking Status *Q: Current Every Day Smoker Years of Tobacco use: 15 Packs/Tins Daily: 1 Used Tobacco, but Quit: No Second Hand Smoke Exposure: Yes - Caffeine Use Caffeine Use: Reports: Coffee, Energy Drinks Caffeine Use Comment: several per day - Recreational Drug Use Recreational Drug Use: Yes Drug Use in Last 12 Months: Yes Recreational Drug Type: Reports: Marijuana/Hashish Recreational Drug Use Frequency: Daily Review of Systems - Review of Systems Review Of Systems: See Below ED EXAM, GENERAL - Physical Exam Exam: See Below Course - Vital Signs Text/Narrative:: Patient is extremely animated in the ED but has full range of motion of the upper extremity good vascular exam in the upper extremity I will treat her with some Valium for spasm and Motrin for pain and 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 I do not find any [place] causes for the pain I am not believe she has a fracture or vascular problem. Last Recorded V/S: Last Vital Signs Temp 36.9 C 10/19/19 07:52 Pulse 112 H 10/19/19 07:52 Resp 24 H 10/19/19 07:52 BP 136/90 10/19/19 07:52 Pulse Ox 96 10/19/19 07:52 - Orders/Labs/Meds Meds: Medications Discontinued Medications Generic Name Dose Route Start Last Admin Trade Name Freq PRN Reason Stop Dose Admin Diazepam 5 mg 10/19/19 08:08 Valium. PO 10/19/19 08:09 ONETIME ONE Ibuprofen 800 mg 10/19/19 08:08 Motrin PO 10/19/19 08:09 ONETIME ONE Departure - Departure Time of Disposition: 08:13 Disposition: Home, Self-Care 01 Condition: Good Clinical Impression: Cervical radiculopathy - Discharge Information *PRESCRIPTION DRUG MONITORING PROGRAM REVIEWED*: Not Applicable *COPY OF PRESCRIPTION DRUG MONITORING REPORT IN PATIENT MOHINI: Not Applicable Prescriptions: Cyclobenzaprine [Flexeril] 10 mg PO TID #30 tab predniSONE 60 mg PO WITHBREAKFAST 5 Days #15 tab Instructions: Cervical Radiculopathy, [id number] Referrals: Margaret Bower NP [Primary Care Provider] - Additional Instructions: The following information is given to patients seen in the emergency department who are being discharged to home. This information is to outline your options for follow-up care. We provide all patients seen in our emergency department wi th a follow-up referral. The need for follow-up, as well as the timing and circumstances, are variable depending upon the specifics of your emergency department visit. If you don't have a primary care physician on staff, we will provide you with a referral. We always advise you to contact your personal physician following an emergency department visit to inform them of the circumstance of the visit and for follow-up with them and/or the need for any referrals to a consulting specialist. The emergency department will also refer you to a specialist when appropriate. This referral assures that you have the opportunity for follow-up care with a specialist. All of these measure are taken in an effort to provide you with optimal care, which includes your follow-up. Under all circumstances we always encourage you to contact your private physician who remains a resource for coordinating your care. When calling for follow-up care, please make the office aware that this follow-up is from your recent emergency room visit. If for any reason you are refused follow-up, please contact the [facility] Emergency Department at and asked to speak to the emergency department charge nurse. [facility] [address] [place] [id number] Sepsis Event Note (ED) - Evaluation Sepsis Screening Result: No Definite Risk - Focused Exam Vital Signs: Vital Signs Temp Pulse Resp BP Pulse Ox 10/19/19 07:52 36.9 C 112 H 24 H 136/90 96
[2019-10-19 08:37] VITALS: BP 141/79; PULSE 86
== END 2019-10-19 08:41 | disposition home or self-care (01) ==
LOC: MW.ED 07:28
DX: M54.12 Radiculopathy, cervical region (principal); J45.909 Unspecified asthma, uncomplicated; K21.9 Gastro-esophageal reflux disease without esophagitis; F41.9 Anxiety disorder, unspecified; F32.9 Major depressive disorder, single episode, unspecified; E66.9 Obesity, unspecified; Z68.29 Body mass index [BMI] 29.0-29.9, adult; F17.210 Nicotine dependence, cigarettes, uncomplicated; Z79.899 Other long term (current) drug therapy
CPT/HCPCS: 99283; A9270

== ENCOUNTER 2020-07-22 13:33 | Emergency (ER) | payer MEDICAID ==
[2020-07-22] MEDS ORDERED: Morphine 4 MG/ML Syringe IVPUSH ONE (14:10)
[2020-07-22] MEDS ORDERED: Ondansetron 4 MG/2 ML SDV IVPUSH ONE (14:10)
--- NOTE | 2020-07-22 15:58 | EDM.PDOC ---
ED HPI GENERAL MEDICAL PROBLEM - General Chief Complaint: Back Pain or Injury Stated Complaint: BACK PAIN Time Seen by Provider: 07/22/20 13:35 Source of Information: Reports: Patient History Limitations: Reports: No Limitations - History of Present Illness INITIAL COMMENTS - FREE TEXT/NARRATIVE: HISTORY AND PHYSICAL: History of present illness: Patient is a 35-year-old female who presents emergency room today with concern of acute exacerbation of chronic low back pain that she woke up with this morning. Patient states she has a history of chronic low back pain and follows with a pain specialist, Dr. Ruiz. Patient states that over the past year, she has had improved low back pain and has not had any exacerbations in the past year. Patient states that approximately 1 year ago, she did have injections that Dr. Ruiz did into her back which she states helped her pain. Patient states that when she woke up this morning, she had severe 10 out of 10 back pain and states that she took her muscle relaxers without resolution of her symptoms. Patient states that "she could always be ". Denies any trauma or injury to her low back. Has any loss or retention of bowel bladder function or saddle anesthesia. Patient denies fever, chills, chest pain, shortness of breath, or cough. Denies headache, neck stiff ness, change in vision, syncope, or near syncope. Denies nausea, vomiting, abdominal pain, diarrhea, constipation, or dysuria. Has not noted any blood in urine or stool. Patient has been eating and drinking appropriately. Review of systems: As per history of present illness and below otherwise all systems reviewed and negative. Past medical history: As per history of present illness and as reviewed below otherwise noncontributory. Surgical history: As per history of present illness and as reviewed below otherwise noncontributory. Social history: See social history for further information Family history: As per history of present illness and as reviewed below otherwise noncontributory. Physical exam: General: Patient is alert, oriented, and in no acute distress. Patient sitting on exam table rocking back and forth, crying and shouting. Vitals stable and reviewed by me. HEENT: Atraumatic, normocephalic, pupils equal and reactive bilaterally, negative for conjunctival pallor or scleral icterus, mucous membranes moist, TMs normal bilaterally, throat clear, neck supple, nontender, trachea midline. No drooling or trismus noted. No meningeal signs. No hot potato voice noted. Lungs: Clear to auscultation, breath sounds equal bilaterally, chest nontender. Heart: S1S2, regular rate and rhythm without overt murmur Abdomen: Soft, nondistended, nontender. Negative for masses or hepatosplenomegaly. Negative for costovertebral tenderness. Pelvis: Stable nontender. Genitourinary: Deferred. Rectal: Deferred. Skin: Intact, warm, dry. No lesions or rashes noted. Extremities: No obvious deformity of the complete spine. No step-offs, or crepitus to palpation of the complete spine. Patient has nonspecific tenderness of her and her entire thoracic and lumbar spine and will not allow full examination due to pain. She is able to ambulate without difficulty and did ambulate today in the ED. Patient does have full range of motion of all extremities without pain or deficit. Otherwise, atraumatic, negative for cords or calf pain. Neurovascular unremarkable. Neuro: Awake, alert, oriented. Cranial nerves II through XII unremarkable. Cerebellum unremarkable. Motor and sensory unremarkable throughout. Exam nonfocal. Notes: Initial exam, patient does appear quite uncomfortable, is crying and shouting. She is able to ambulate without deficit and has generalized pain of her thoracic and lumbar spine without localization of pain on exam. There is no obvious deformity of her spine, no lesions, rashes, masses, or erythema. Due to patient's pain, out of proportion to stated complaint, will obtain CT imaging of her thoracic and lumbar spine. Patient did not receive any imaging but did leave a urine sample prior to elopement from the emergency room. She did not receive any therapeutics. Diagnostics: UA/cg, (lumbar/thoracic ct w/o cont--did not get performed as patient eloped the ED) Therapeutics: Morphine, Zofran (She did not receive as she eloped the ED) Prescription: Eloped the ED Impression: Chronic low back pain Patient eloped the ED Plan: Patient eloped the ED prior to discharge Definitive disposition and diagnosis as appropriate pending reevaluation and review of above. - Related Data Allergies Allergy/AdvReac Type Severity Reaction Status Date / Time No Known Allergies Allergy Verified 10/19/19 07:48 Home Meds: Home Meds Omeprazole 40 mg PO DAILY 11/02/14 [History] Albuterol [Proventil HFA] 1 puff INH ASDIRECTED PRN 12/18/17 [History] traMADol HCl [Tramadol HCl] 50 mg PO Q6H PRN 04/15/18 [History] Cyclobenzaprine [Flexeril] 10 tab PO BID PRN 04/28/18 [History] Ondansetron [Zofran] 4 mg PO ASDIRECTED PRN 11/29/18 [History] Orphenadrine Citrate [Orphenadrine Citrate ER] 100 mg PO BID 11/29/18 [History] Cyclobenzaprine [Flexeril] 10 mg PO TID #30 tab 10/19/19 [Rx] LORazepam [Ativan] 0.5 mg PO ASDIRECTED PRN 10/19/19 [History] busPIRone HCl [busPIRone] 30 mg PO BID 10/19/19 [History] predniSONE 60 mg PO WITHBREAKFAST 5 Days #15 tab 10/19/19 [Rx] Past Medical History - Past Health History Medical/Surgical History: Denies Medical/Surgical History Other HEENT History: Maxillary Sinusitis Cardiovascular History: Reports: None Respiratory History: Reports: Asthma, Bronchitis, Recurrent Other Respiratory History: Nicotine Dependence 15 yr history of smoking, current use <1 pack per day Gastrointestinal History: Reports: GERD Other Gastrointestinal History: Heartburn / GERD, Fatty food intolerence, Epigastric pain, Internal hemorrhoid Genitourinary History: Reports: None [employer]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: Acute Pelvic Inflammatory disease, cyst on right ovary, IUD in past Musculoskeletal History: Reports: None Neurological 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 (See Below) Other Neuro History: Pinched Nerve Psychiatric History: Reports: Anxiety, Depression, Other (See Below) Other Psychiatric History: Schizo-affective disorder, Borderline personality disorder with social anxiety- manages on an ongoing basis at Endocrine/Metabolic History: Reports: Obesity/BMI 30+, Other (See Below) Other Endocrine/Metabolic History: Hypoglycemia Hematologic History: Reports: None Immunologic History: Reports: None Other Immunologic History: Toxoplasmosis Oncologic (Cancer) History: Reports: None Dermatologic History: Reports: None Other Dermatologic History: Psoriasis of Scalp - Infectious Disease History Infectious Disease History: Reports: None - Past Surgical History Head Surgeries/Procedures: Reports: None HEENT Surgical History: Reports: None Respiratory Surgical History: Reports: None GI Surgical History: Reports: Cholecystectomy, Colonoscopy, EGD Female Surgical History: Reports: None Endocrine Surgical History: Reports: None Neurological Surgical History: Reports: None Musculoskeletal Surgical History: Reports: Ganglion Cyst Other Musculoskeletal Surgeries/Procedures:: Left Hand surgery Oncologic Surgical History: Reports: None Dermatological Surgical History: Reports: None Social & Family History - Family History Family Medical History: No Pertinent Family History Neurological: Reports: CVA - Caffeine Use Caffeine Use: Reports: Coffee, Energy Drinks Caffeine Use Comment: several per day ED ROS GENERAL - Review of Systems Review Of Systems: Comprehensive ROS is negative, except as noted in HPI. ED EXAM, GENERAL - Physical Exam Exam: See Below (see dictation) Course - Orders/Labs/Meds Orders: Active Orders 24 hr Category Date Time Status Lumbar Spine wo Cont [CT] Stat Exams 07/22/20 14:11 Ordered Thoracic Spine wo Cont [CT] Stat Exams 07/22/20 14:10 Ordered Labs: Laboratory Tests 07/22/20 07/22/20 Range/Units 14:56 14:56 Urine Color YELLOW Urine Appearance CLEAR Urine pH 5.0 (5.0-8.0) Ur Specific [place] 1.020 (1.001-1.035) Urine Protein NEGATIVE (NEGATIVE) mg/dL Urine Glucose (UA) NEGATIVE (NEGATIVE) mg/dL Urine Ketones NEGATIVE (NEGATIVE) mg/dL Urine Occult Blood NEGATIVE (NEGATIVE) Urine Nitrite NEGATIVE (NEGATIVE) Urine Bilirubin NEGATIVE (NEGATIVE) Urine Urobilinogen 0.2 (<2.0) EU/dL Ur Leukocyte Esterase NEGATIVE (NEGATIVE) Urine HCG, Qual NEGATIVE (NEGATIVE) Meds: Medications Discontinued Medications Generic Name Dose Route Start Last Admin Trade Name Freq PRN Reason Stop Dose Admin Morphine Sulfate 4 mg 07/22/20 14:10 Morphine 4 Mg/Ml Syringe IVPUSH 07/22/20 14:11 ONETIME ONE Ondansetron HCl 4 mg 07/22/20 14:10 Ondansetron 4 Mg/2 Ml Sdv IVPUSH 07/22/20 14:11 ONETIME ONE Departure - Departure Time of Disposition: 15:51 Disposition: Eloped 07 Clinical Impression: Eloped from emergency department Low back pain Qualifiers: Chronicity: acute Back pain laterality: midline Sciatica presence: without sciatica Qualified Code(s): M54.5 - Low back pain - Discharge Information Referrals: PCP,None [Primary Care Provider] - Additional Instructions: Patient eloped the ED prior to discharge - My Orders Last 24 Hours: My Active Orders 07/22/20 14:10 Thoracic Spine wo Cont [CT] Stat 07/22/20 14:11 Lumbar Spine wo Cont [CT] Stat - Assessment/Plan Last 24 Hours: My Active Orders 07/22/20 14:10 Thoracic Spine wo Cont [CT] Stat 07/22/20 14:11 Lumbar Spine wo Cont [CT] Stat
[2020-07-24 07:08] VITALS: BP 129/82; PULSE 86
== END 2020-07-22 15:35 | disposition left against medical advice (07) ==
LOC: MW.ED 13:33
DX: M54.5 Low back pain (principal); G89.29 Other chronic pain; J45.909 Unspecified asthma, uncomplicated; K21.9 Gastro-esophageal reflux disease without esophagitis; E66.9 Obesity, unspecified; Z68.34 Body mass index [BMI] 34.0-34.9, adult; Z79.899 Other long term (current) drug therapy; Z72.0 Tobacco use
CPT/HCPCS: 81003; 81025; 99283

== ENCOUNTER 2020-09-08 21:45 | Emergency (ER) | payer MEDICAID ==
--- NOTE | 2020-09-08 21:51 | EDM.PDOC ---
ED HPI GENERAL MEDICAL PROBLEM - General Chief Complaint: Laceration Stated Complaint: CUT ON LEFT HAND Time Seen by Provider: 09/08/20 21:46 Source of Information: Reports: Patient History Limitations: Reports: No Limitations - History of Present Illness INITIAL COMMENTS - FREE TEXT/NARRATIVE: 35-year-old female presents for laceration to left hand. Patient was trying to remove a magnet from her iPhone case with a letter lead supply worker when she slipped injuring the palmar aspect of her left hand. She has a roughly 1 cm laceration to the MCP joint of the left second digit. She is uncertain when her last tetanus vaccination was. She denies any other injuries. Right Finger-Index Pain Score (Numeric/FACES): 3 - Related Data Allergies Allergy/AdvReac Type Severity Reaction Status Date / Time No Known Allergies Allergy Verified 09/08/20 21:58 Home Meds: Home Meds Omeprazole 40 mg PO DAILY 11/02/14 [History] Albuterol [Proventil HFA] 1 puff INH ASDIRECTED PRN 12/18/17 [History] traMADol HCl [Tramadol HCl] 50 mg PO Q6H PRN 04/15/18 [History] Cyclobenzaprine [Flexeril] 10 tab PO BID PRN 04/28/18 [History] Ondansetron [Zofran] 4 mg PO ASDIRECTED PRN 11/29/18 [History] Orphenadrine Citrate [Orphenadrine Citrate ER] 100 mg PO BID 11/29/18 [History] Cyclobenzaprine [Flexeril] 10 mg PO TID #30 tab 10/19/19 [Rx] LORazepam [Ativan] 0.5 mg PO ASDIRECTED PRN 10/19/19 [History] busPIRone HCl [busPIRone] 30 mg PO BID 10/19/19 [History] predniSONE 60 mg PO WITHBREAKFAST 5 Days #15 tab 10/19/19 [Rx] Past Medical History - Past Health History Medical/Surgical History: Denies Medical/Surgical History Other HEENT History: Maxillary Sinusitis Cardiovascular History: Reports: None Respiratory History: Reports: Asthma, Bronchitis, Recurrent Other Respiratory History: Nicotine Dependence 15 yr history of smoking, current use <1 pack per day Gastrointestinal History: Reports: GERD Other Gastrointestinal History: Heartburn / GERD, Fatty food intolerence, Epigastric pain, Internal hemorrhoid Genitourinary History: Reports: None PRODUCTION INSPECTOR 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 PRODUCTION INSPECTOR History: Acute Pelvic Inflammatory disease, cyst on right ovary, IUD in past Musculoskeletal History: Reports: Back Pain, Chronic Neurological 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 (See Below) Other Neuro History: Pinched Nerve Psychiatric History: Reports: Anxiety, Depression, Other (See Below) Other Psychiatric History: Schizo-affective disorder, Borderline personality disorder with social anxiety- manages on an ongoing basis at Endocrine/Metabolic History: Reports: Obesity/BMI 30+, Other (See Below) Other Endocrine/Metabolic History: Hypoglycemia Hematologic History: Reports: None Immunologic History: Reports: None Other Immunologic History: Toxoplasmosis Oncologic (Cancer) History: Reports: None Dermatologic History: Reports: None Other Dermatologic History: Psoriasis of Scalp - Infectious Disease History Infectious Disease History: Reports: None - Past Surgical History Head Surgeries/Procedures: Reports: None HEENT Surgical History: Reports: None Respiratory Surgical History: Reports: None GI Surgical History: Reports: Cholecystectomy, Colonoscopy, EGD Female Surgical History: Reports: None Endocrine Surgical History: Reports: None Neurological Surgical History: Reports: None Musculoskeletal Surgical History: Reports: Ganglion Cyst Other Musculoskeletal Surgeries/Procedures:: Left Hand surgery Oncologic Surgical History: Reports: None Dermatological Surgical History: Reports: None Social & Family History - Family History Family Medical History: No Pertinent Family History Neurological: Reports: CVA - Caffeine Use Caffeine Use: Reports: Coffee Caffeine Use Comment: several per day ED ROS GENERAL - Review of Systems Review Of Systems: Comprehensive ROS is negative, except as noted in HPI. ED EXAM, SKIN/RASH Exam: See Below Exam Limited By: No Limitations General Appearance: Alert, WD/WN, No Apparent Distress Throat/Mouth: Normal Voice, No Airway Compromise Head: Atraumatic, Normocephalic Respiratory/Chest: No Respiratory Distress, No Accessory Muscle Use Cardiovascular: Normal Peripheral Pulses Extremities: Normal Inspection Neurological: Alert, Normal Gait Psychiatric: Normal Affect, Normal Mood Skin: Warm, Dry, Intact, Normal Color Location, Skin: Other (1-cm laceration just distal to MCP joint of left 2nd palmar finger) ED SKIN PROCEDURES - Laceration/Wound Repair Left Digit - 2nd (Index) Appearance: Superficial, Subcutaneous Distal NVT: Neuro & Vascular Intact Anesthetic Type: Local Local Anesthesia - Lidocaine (Xylocaine): 2% Plain Local Anesthetic Volume: 3cc Skin Prep: Chlorhexidine (Hibiciens) Saline Irrigation (cc's): 50 Exploration/Debridement/Repair: Wound Explored Closed with: Sutures Lac/Wound length In cm: 1 Suture Size: 4-0 # of Sutures: 2 Suture Type: Nylon Drain Placement: No Tetanus Status Addressed: Yes Complications: No Course - Vital Signs Last Recorded V/S: Last Vital Signs Temp 98.2 F 09/08/20 21:56 Pulse 112 H 09/08/20 21:56 Resp 16 09/08/20 21:56 BP 130/100 H 09/08/20 21:56 Pulse Ox 98 09/08/20 21:56 - Orders/Labs/Meds Orders: Active Orders 24 hr Category Date Time Status Vaccines to be Administered [RC] PER UNIT ROUTINE Care 09/08/20 22:00 Ordered Diphth,Pertuss(Acell),Tet Vac [Boostrix] Med 09/08/20 22:00 Once 0.5 ml IM .ONCE ONE Lidocaine 2% [Xylocaine-MPF 2%] Med 09/08/20 22:00 Once 5 ml INJECT ONETIME ONE - Re-Assessments/Exams Free Text/Narrative Re-Assessment/Exam: 09/08/20 22:02 The wound was cleaned extensively by nursing; there does not appear to be any tendon involvement based on my examination. Laceration repaired as noted. Will d/c with return in 7-10 days for suture removal. Departure - Departure Time of Disposition: 22:03 Disposition: Home, Self-Care 01 Condition: Good Clinical Impression: Laceration - Discharge Information Instructions: Laceration Care, Adult Referrals: Renu Cardozo NP [Primary Care Provider] - Forms: ED Department Discharge Additional Instructions: You will need to have your sutures removed in 7 to 10 days. You can either come back to the emergency department, go to an urgent care center, or follow-up with your primary care physician for suture removal. The following information is given to patients seen in the emergency department who are being discharged to home. This information is to outline your options for follow-up care. We provide all patients seen in our emergency department with a follow-up referral. The need for follow-up, as well as the timing and circumstances, are variable depending upon the specifics of your emergency department visit. If you don't have a primary care physician on staff, we will provide you with a referral. We always advise you to contact your personal physician following an emergency department visit to inform them of the circumstance of the visit and for follow-up with them and/or the need for any referrals to a consulting specialist. The emergency department will also refer you to a specialist when appropriate. This referral assures that you have the opportunity for follow-up care with a specialist. All of these measure are taken in an effort to provide you with optimal care, which includes your follow-up. Under all circumstances we always encourage you to contact your private physician who remains a resource for coordinating your care. When calling for follow-up care, please make the office aware that this follow-up is from your recent emergency room visit. If for any reason you are refused follow-up, please contact the [facility] Emergency Department at and asked to speak to the emergency department charge nurse. Please follow up with your primary care physician. If you do not have a primary care physician, see below: [facility] [address] [place] [phone] [id number] [facility] [address] [place] [id number] Sepsis Event Note (ED) - Focused Exam Vital Signs: Vital Signs Temp Pulse Resp BP Pulse Ox 09/08/20 21:56 98.2 F 112 H 16 130/100 H 98 - My Orders Last 24 Hours: My Active Orders 09/08/20 22:00 Vaccines to be Administered [RC] PER UNIT ROUTINE Diphth,Pertuss(Acell),Tet Vac [Boostrix] 0.5 ml IM .ONCE ONE Lidocaine 2% [Xylocaine-MPF 2%] 5 ml INJECT ONETIME ONE - Assessment/Plan Last 24 Hours: My Active Orders 09/08/20 22:00 Vaccines to be Administered [RC] PER UNIT ROUTINE Diphth,Pertuss(Acell),Tet Vac [Boostrix] 0.5 ml IM .ONCE ONE Lidocaine 2% [Xylocaine-MPF 2%] 5 ml INJECT ONETIME ONE
[2020-09-08 21:58] VITALS: BP 130/100; PULSE 112
[2020-09-08] MEDS ORDERED: Lidocaine 2% 5 ML SDV INJECT ONE (22:00)
[2020-09-08] MEDS ORDERED: Diphtheria,Pertussis(Acell),Tetanus Vaccine 0.5 ML Syringe IM ONE (22:00)
== END 2020-09-08 22:38 | disposition home or self-care (01) ==
LOC: MW.ED 21:45
DX: S61.211A Laceration without foreign body of left index finger without damage to nail, initial encounter (principal); J45.909 Unspecified asthma, uncomplicated; K21.9 Gastro-esophageal reflux disease without esophagitis; E66.9 Obesity, unspecified; Z68.35 Body mass index [BMI] 35.0-35.9, adult; Z79.899 Other long term (current) drug therapy; Z23 Encounter for immunization; W26.8XXA Contact with other sharp object(s), not elsewhere classified, initial encounter
CPT/HCPCS: 12001; 90471; 90715; 99282; 99282-25

== ENCOUNTER 2020-09-20 14:05 | Emergency (ER) | payer MEDICAID ==
[2020-09-20 14:20] VITALS: BP 146/91; PULSE 98
== END 2020-09-20 14:24 | disposition left against medical advice (07) ==
LOC: MW.ED 14:05
DX: Z53.21 Procedure and treatment not carried out due to patient leaving prior to being seen by health care provider (principal)

== ENCOUNTER 2020-11-17 10:50 | Day surgery (SDC) | payer MEDICAID ==
[2020-11-17] MEDS ORDERED: Ropivacaine 0.5% 5 MG/ML 30 ML SDV INJECT ONE (13:30)
[2020-11-17] MEDS ORDERED: Betamethasone Acetate/Betamethasone Sod Phosphate 30 MG/5 ML MDV EPIDUR ONE (13:30)
[2020-11-17] MEDS ORDERED: Lidocaine 2% 5 ML SDV INJECT ONE (13:30)
[2020-11-17] MEDS ORDERED: Iopamidol 200-M 10 ML vial ITHECAL ONE (13:30)
--- NOTE | 2020-11-17 17:08 | OR ---
SURGEON: Lorie Posada D.O. DATE OF PROCEDURE: 11/17/2020 PRIMARY SURGEON: oLrie Posada D.O. CIVIL GEOTECHNICAL ENGINEER: OR staff present: 1. Violetta Guidry RT. 2. Violetta Bartlett RN. 3. Violetta Holt RN. WOUND CLASS: I. PREOPERATIVE DIAGNOSES: 1. Right L5-S1 radiculopathy. 2. Lumbar herniated disk. 3. Lumbar degenerative disk disease, L4-5, L5-S1. 4. Lumbar spondylosis. 5. Complex regional pain syndrome, type I. POSTOPERATIVE DIAGNOSES: 1. Right L5-S1 radiculopathy. 2. Lumbar herniated disk. 3. Lumbar degenerative disk disease, L4-5, L5-S1. 4. Lumbar spondylosis. 5. Complex regional pain syndrome, type I. PROCEDURE PERFORMED: 1. Right S1 transforaminal epidural steroid injection. 2. Fluoroscopic guidance for needle placement. 3. Local with oral Valium for sedation. SCREENING QUESTIONS: The patient answered "no" to all of the following questions: 1. Are you allergic to iodine, Betadine or latex? 2. Do you have a bleeding disorder? 3. Do you have any joint replacements, heart valve replacements, or a pacemaker? 4. Are you allergic to anti-inflammatories or blood thinners? 5. Do you have any current local or systemic infections? DESCRIPTION OF PROCEDURE: The patient had the procedure thoroughly explained including risks, benefits and alternatives. Consent was signed in my clinic indicating understanding and willingness to proceed. The patient presented to [facility] [place] where the patient was escorted to the dressing room to disrobe and change into a hospital gown. Preoperative vital signs were taken and stable. The patient reported that Valium was taken prior to the procedure. The patient was brought to the procedure room and placed in the prone position on the table. A pillow was placed under the abdomen in order to flatten the lumbar lordosis. The back was prepped with ChloraPrep and sterilely draped. All personnel in the operating room were dressed in appropriate attire including surgical scrubs, head and shoe covers. This was to ensure sterility while in the treatment room. During the time fluoroscopy was in use, all personnel in the operating room wore lead dodson with thyroid collars. Sterile technique was used during the procedure. The fluoroscope was placed for the right S1 transforaminal epidural steroid injection. There was no sign of infection at the skin site for needle insertion. The skin was anesthetized with 2% lidocaine with a 27 gauge 1-1/2 inch needle. Then a 22 gauge 3-1/2 inch spinal needle, advanced to the right S1. Under direct fluoroscopic guidance needle position was verified in three views; AP, oblique and lateral, with 0.2 cubic centimeters increments of Isovue- 200 dye. No intravascular flow pattern was observed under live fluoroscopy. Then 12 milligrams of Celestone and local was slowly injected after negative aspiration of heme, cerebrospinal fluid and no paresthesias were noted. The needle was cleared prior to removal from the skin. No adverse reactions were noted. The patient was brought to the recovery room awake and in good condition by my staff. The patient was monitored and discharge instructions were given after a brief stay in the recovery area. Both oral and written discharge and follow up instructions were given. The patient will follow up in the clinic in 3-4 weeks post procedure to evaluate the efficacy. The patient verbalized understanding including understanding of those signs and symptoms that would require emergency care and knows how to contact the office if there are any problems or questions in the meantime. PREOPERATIVE PAIN: 10/10. POSTOPERATIVE PAIN: 2/10. FOLLOWUP: Follow up in the Pain Clinic in 3 weeks. ARIAN BEAL /[id number] PETAR
== END 2020-11-17 13:37 ==
LOC: MW.SDS 10:50
PROVIDERS: ATTEND Anesthesiology
DX: G90.511 Complex regional pain syndrome I of right upper limb (principal); M51.17 Intervertebral disc disorders with radiculopathy, lumbosacral region; M47.26 Other spondylosis with radiculopathy, lumbar region; F17.200 Nicotine dependence, unspecified, uncomplicated; M51.16 Intervertebral disc disorders with radiculopathy, lumbar region; K21.9 Gastro-esophageal reflux disease without esophagitis; M79.18 Myalgia, other site; Z79.899 Other long term (current) drug therapy; Z98.890 Other specified postprocedural states
CPT/HCPCS: 64483; J0702; J2795; Q9966

== ENCOUNTER 2021-06-02 10:39 | Day surgery (SDC) | payer MEDICAID ==
[~2021-06-02 10:39] MED LIST changes: -Betamethasone Acetate/Betamethasone Sod Phosphate 30 MG/5 ML MDV EPIDUR ONE; -Iopamidol 200-M 10 ML vial ITHECAL ONE; -Iopamidol 408 MG/ML 20 ML SDV ITHECAL ONE; +Lactated Ringers 1,000 ML IV SCH; -Ropivacaine 0.5% 5 MG/ML 30 ML SDV EPIDUR ONE; -Ropivacaine 0.5% 5 MG/ML 30 ML SDV INJECT ONE
[2021-06-02] MEDS ORDERED: fentaNYL 100 MCG/2 ML SDV ONE (12:15)
[2021-06-02] MEDS ORDERED: Propofol 200 MG/20 ML SDV ONE ×2 (12:15→13:14)
[2021-06-02] MEDS ORDERED: Lidocaine 2% 5 ML SDV ONE (12:16)
[2021-06-02] MEDS ORDERED: Ketamine 500 mg/10 ML MDV ONE (12:42)
[2021-06-02 13:44] VITALS: PULSE 77
[2021-06-02] MEDS ORDERED: Lactated Ringers 1,000 ML IV SCH (13:45)
[2021-06-02 13:55] VITALS: BP 110/57
== END 2021-06-02 14:16 | disposition home or self-care (01) ==
LOC: MW.SDS 10:39
PROVIDERS: ATTEND Surgery
DX: K62.5 Hemorrhage of anus and rectum (principal); K31.89 Other diseases of stomach and duodenum; I78.1 Nevus, non-neoplastic; K29.50 Unspecified chronic gastritis without bleeding; K21.9 Gastro-esophageal reflux disease without esophagitis; F41.9 Anxiety disorder, unspecified; F32.A Depression, unspecified; G47.00 Insomnia, unspecified; M79.18 Myalgia, other site; E66.9 Obesity, unspecified; E55.9 Vitamin D deficiency, unspecified; R05.3 Chronic cough; J40 Bronchitis, not specified as acute or chronic; F90.2 Attention-deficit hyperactivity disorder, combined type; F17.210 Nicotine dependence, cigarettes, uncomplicated; Z79.899 Other long term (current) drug therapy; Z98.890 Other specified postprocedural states; Z68.41 Body mass index [BMI] 40.0-44.9, adult
CPT/HCPCS: 43239; 45378; 81025; J2704; J3010; J7120; 00813; J3490

== ENCOUNTER 2021-08-29 10:03 | Emergency (ER) | payer MEDICAID ==
[2021-08-29] MEDS ORDERED: Sodium Chloride 0.9% 1,000 ML IV ONE ×2 (10:15→11:52)
[2021-08-29] MEDS ORDERED: Sodium Chloride 0.9% 10 ML Syringe FLUSH PRN (10:15)
[2021-08-29] MEDS ORDERED: Sodium Chloride 0.9% 2.5 ML Syringe FLUSH PRN (10:15)
[2021-08-29] MEDS ORDERED: Ondansetron 4 MG/2 ML SDV IVPUSH ONE (10:15)
[2021-08-29 11:16] LABS: BLOOD UREA NITROGEN,BUN 14 mg/dL (7.0-18.0); CARBON DIOXIDE,CO2 24.8 mmol/L (21.0-32.0); CHLORIDE,CL 101 mmol/L (98-107); GLUCOSE RANDOM 138 mg/dL (74-106); POTASSIUM,K 3.6 mmol/L (3.5-5.1); SODIUM,NA 138 mmol/L (136-145)
[2021-08-29 12:34] VITALS: BP 125/74; PULSE 75
== END 2021-08-29 12:30 | disposition home or self-care (01) ==
LOC: MW.ED 10:03
DX: B34.9 Viral infection, unspecified (principal); F19.90 Other psychoactive substance use, unspecified, uncomplicated; K21.9 Gastro-esophageal reflux disease without esophagitis; E66.9 Obesity, unspecified; Z91.048 Other nonmedicinal substance allergy status; Z79.899 Other long term (current) drug therapy; Z68.38 Body mass index [BMI] 38.0-38.9, adult
CPT/HCPCS: 36415; 80053; 80305; 80307; 81003; 81025; 85025; 93005; 96374; 99284; J2405; J3490; J7030

== ENCOUNTER 2022-03-12 17:53 | Emergency (ER) | payer MEDICAID ==
[2022-03-12] MEDS ORDERED: Sodium Chloride 0.9% 1,000 ML IV ONE (17:57)
[2022-03-12] MEDS ORDERED: HYDROmorphone 1 MG/ML Syringe IVPUSH ONE (17:57)
[2022-03-12] MEDS ORDERED: Ondansetron 4 MG/2 ML SDV IVPUSH ONE (17:57)
[2022-03-12] MEDS ORDERED: Lidocaine 2% 5 ML SDV ONE (19:23)
[2022-03-12] MEDS ORDERED: Propofol 200 MG/20 ML SDV ONE (19:23)
[2022-03-12] MEDS ORDERED: fentaNYL 100 MCG/2 ML SDV ONE (19:23)
[2022-03-12] MEDS ORDERED: Lactated Ringers 1,000 ML IV STA (19:33)
[2022-03-12] MEDS ORDERED: oxyCODONE 5 MG Tab PO ONE (21:03)
[2022-03-12] MEDS ORDERED: Acetaminophen 325 MG Tab PO ONE (21:03)
[2022-03-12 23:02] VITALS: BP 151/95; PULSE 96
== END 2022-03-12 22:50 | disposition home or self-care (01) ==
LOC: MW.ED 17:53
DX: S82.302A Unspecified fracture of lower end of left tibia, initial encounter for closed fracture (principal); S82.832A Other fracture of upper and lower end of left fibula, initial encounter for closed fracture; E66.9 Obesity, unspecified; Z68.45 Body mass index [BMI] 70 or greater, adult; Z91.048 Other nonmedicinal substance allergy status; Z79.899 Other long term (current) drug therapy; Z90.49 Acquired absence of other specified parts of digestive tract; Z20.822 Contact with and (suspected) exposure to COVID-19; W18.39XA Other fall on same level, initial encounter
CPT/HCPCS: 27760; 73590; 73610; 87635; 96374; 96375; 99284; A9270; J1170; J2405; J2704; J3010; J7120; U0002

== ENCOUNTER 2022-03-13 14:42 | Day surgery (SDC) | payer MEDICAID ==
[2022-03-13] MEDS ORDERED: Ropivacaine 0.5% 5 MG/ML 30 ML SDV ONE (15:17)
[2022-03-13] MEDS ORDERED: fentaNYL 100 MCG/2 ML SDV ONE (15:22)
[2022-03-13] MEDS ORDERED: Lactated Ringers 1,000 ML IV SCH (15:30)
[2022-03-13] MEDS ORDERED: Dexmedetomidine 200 MCG/2 ML SDV ONE (15:43)
[2022-03-13] MEDS ORDERED: Succinylcholine/Sod PF 100 MG/5 ML SYRINGE IV ONE (15:43)
[2022-03-13] MEDS ORDERED: Rocuronium Bromide 50 MG/5 ML Syringe ONE (15:43)
[2022-03-13] MEDS ORDERED: Lidocaine 2% 5 ML SDV ONE (15:43)
[2022-03-13] MEDS ORDERED: Propofol 200 MG/20 ML SDV ONE ×2 (15:43→18:08)
[2022-03-13] MEDS ORDERED: Ketamine 500 mg/10 ML MDV ONE (15:47)
[2022-03-13] MEDS ORDERED: ceFAZolin 2 GM in Premix Bag 1 BAG IV SCH (16:00)
[2022-03-13] MEDS ORDERED: ceFAZolin 2 GM Vial ONE (16:25)
[2022-03-13] MEDS ORDERED: ceFAZolin 1 GM Vial ONE (16:55)
[2022-03-13] MEDS ORDERED: Magnesium Sulfate (4.06 MEQ/ML) 5 GM/10 ML SDV ONE (17:28)
[2022-03-13] MEDS ORDERED: HYDROmorphone 2 MG/ML Syringe ONE (17:29)
[2022-03-13] MEDS ORDERED: Ondansetron 4 MG/2 ML SDV ONE (17:53)
[2022-03-13] MEDS ORDERED: Ketorolac 30 MG/ML SDV ONE (17:53)
[2022-03-14 00:18] VITALS: BP 162/65; PULSE 81
== END 2022-03-13 23:00 | disposition home or self-care (01) ==
LOC: MW.SDS 14:42 → MW.MS 19:01 → MW.SDS 23:00
PROVIDERS: ATTEND Orthopaedic Surgery
DX: S82.842A Displaced bimalleolar fracture of left lower leg, initial encounter for closed fracture (principal); Z79.899 Other long term (current) drug therapy; F41.9 Anxiety disorder, unspecified; F32.A Depression, unspecified; K21.9 Gastro-esophageal reflux disease without esophagitis; E66.9 Obesity, unspecified; G47.00 Insomnia, unspecified; E66.01 Morbid (severe) obesity due to excess calories; E55.9 Vitamin D deficiency, unspecified; Z98.890 Other specified postprocedural states; F17.200 Nicotine dependence, unspecified, uncomplicated
CPT/HCPCS: 27814; 27829; 76000; 81025; J0131; J0330; J0690; J1170; J1885; J2405; J2704; J2795; J3010; J3475; J3490; J7120

== ENCOUNTER 2022-06-20 07:22 | Day surgery (SDC) | payer MEDICAID ==
[2022-06-20] MEDS ORDERED: ceFAZolin 2 GM in Premix Bag 1 BAG IV SCH (08:00)
[2022-06-20] MEDS ORDERED: Morphine 2 MG/ML SYRINGE IVPUSH PRN (08:15)
[2022-06-20] MEDS ORDERED: Ondansetron 4 MG/2 ML SDV IVPUSH PRN (08:15)
[2022-06-20] MEDS ORDERED: Metoclopramide 10 MG/2 ML SDV IVPUSH PRN (08:15)
[2022-06-20] MEDS ORDERED: Albuterol 0.083% 2.5 MG/3 ML Neb Soln NEB PRN (08:15)
[2022-06-20] MEDS ORDERED: HYDROmorphone 1 MG/ML Syringe IVPUSH PRN (08:15)
[2022-06-20] MEDS ORDERED: Naloxone 0.4 MG/ML SDV IVPUSH PRN (08:15)
[2022-06-20] MEDS ORDERED: fentaNYL 50 MCG/ML SDV IVPUSH PRN (08:15)
[2022-06-20] MEDS ORDERED: Bupivacaine 25%/EPINEPHrine/PF 30 ML ONE (08:36)
[2022-06-20] MEDS ORDERED: Ketamine 500 mg/10 ML MDV ONE (08:44)
[2022-06-20] MEDS ORDERED: fentaNYL 100 MCG/2 ML SDV ONE ×2 (08:44→09:11)
[2022-06-20] MEDS ORDERED: Midazolam 1 MG/ML 2 ML SDV ONE (08:44)
[2022-06-20] MEDS ORDERED: ceFAZolin 2 GM Vial ONE (09:05)
[2022-06-20] MEDS ORDERED: Ondansetron 4 MG/2 ML SDV ONE (09:21)
[2022-06-20] MEDS ORDERED: Dexamethasone 4 MG/ML 5 ML MDV ONE (09:21)
[2022-06-20] MEDS ORDERED: Ketorolac 30 MG/ML SDV ONE (09:21)
[2022-06-20] MEDS ORDERED: ePHEDrine 50 MG/ML SDV ONE (11:33)
[2022-06-20 12:03] VITALS: BP 115/78; PULSE 87
== END 2022-06-20 10:36 | disposition home or self-care (01) ==
LOC: MW.SDS 07:22
PROVIDERS: ATTEND Orthopaedic Surgery
DX: S82.843D Displaced bimalleolar fracture of unspecified lower leg, subsequent encounter for closed fracture with routine healing (principal); F41.9 Anxiety disorder, unspecified; F90.2 Attention-deficit hyperactivity disorder, combined type; F32.9 Major depressive disorder, single episode, unspecified; K21.9 Gastro-esophageal reflux disease without esophagitis; G47.00 Insomnia, unspecified; M79.7 Fibromyalgia; J45.909 Unspecified asthma, uncomplicated; E66.01 Morbid (severe) obesity due to excess calories; F17.210 Nicotine dependence, cigarettes, uncomplicated; Z91.048 Other nonmedicinal substance allergy status; Z68.42 Body mass index [BMI] 45.0-49.9, adult
CPT/HCPCS: 20680; 76000; 81025; 82947; J0131; J0690; J1100; J1885; J2250; J2405; J3010; J3490; J7120

== ENCOUNTER 2024-09-21 14:58 | Emergency (ER) | payer MEDICAID ==
[2024-09-21] MEDS: diphenhydrAMINE 50 MG/ML SDV IVPUSH ONE (15:16)
[2024-09-21] MEDS: methylPREDNISolone Sodium Succinate 125 MG/2 ML SDV IVPUSH ONE (15:16)
[2024-09-21] MEDS: Famotidine 20 MG/2 ML SDV IVPUSH ONE (15:16)
[2024-09-21] MEDS: EPINEPHrine 1 MG/ML SDV IM ONE (15:20)
[2024-09-21] MEDS: Ondansetron 4 MG/2 ML SDV IVPUSH ONE ×2 (15:28→15:49)
[2024-09-21] MEDS: Sodium Chloride 0.9% 1,000 ML IV ONE ×2 (15:28→17:14)
[2024-09-21] MEDS: Ondansetron 4 MG/2 ML SDV ONE (15:37)
[2024-09-21 16:11] LABS: BASOPHILS ABSOLUTE AUTO 0.03 K/uL (0.00-0.20); BASOPHILS PERCENT AUTO 0.1 % (0.0-1.0); EOSINOPHILS ABSOLUTE AUTO 0.08 K/uL (0.00-0.45); EOSINOPHILS PERCENT AUTO 0.4 % (0.0-6.0); HEMOGLOBIN 15.7 g/dL (12.0-16.0); IMMATURE GRAN ABSOLUTE AUTO 0.17 K/uL (0.00-0.05); IMMATURE GRAN PERCENT AUTO 0.8 % (0.0-0.4); LYMPHOCYTES ABSOLUTE AUTO 3.57 K/uL (1.00-4.80); LYMPHOCYTES PERCENT AUTO 17.2 % (24.0-44.0); MEAN CORPUSCULAR HEMOGLOBIN 28.8 pg (28.0-32.0); MEAN CORPUSCULAR VOLUME 89.9 fL (83.0-99.0); MEAN PLATELET VOLUME 11.2 fL (9.4-12.3); MONOCYTES ABSOLUTE AUTO 0.45 K/uL (0.00-0.80); MONOCYTES PERCENT AUTO 2.2 % (0.0-8.0); NEUTROPHILS ABSOLUTE AUTO 16.46 K/uL (1.80-7.70); NEUTROPHILS PERCENT AUTO 79.3 % (41.0-71.0); PLATELET COUNT,PLT 358 K/uL (150-400); RED BLOOD CELL COUNT 5.45 M/uL (4.10-5.30); WHITE BLOOD CELL COUNT,WBC 20.76 K/uL (3.9-11.3)
[2024-09-21 16:27] VITALS: BP 138/84
[2024-09-21 16:36] LABS: A/G RATIO 0.9 (0.9-1.6); ALBUMIN 3.5 g/dL (3.4-5.0); BILIRUBIN TOTAL 0.2 mg/dL (0.2-1.0); CALCIUM 8.4 mg/dL (8.5-10.1); CARBON DIOXIDE,CO2 21.4 mmol/L (21.0-32.0); CREATININE 1.3 mg/dL (0.6-1.0); EST CRCL DRUG DOSING (CG) 52.8 mL/min; POTASSIUM,K 3.3 mmol/L (3.5-5.1); PROTEIN TOTAL,TP 7.2 g/dL (6.4-8.2)
[2024-09-21 17:26] LABS: APPEARANCE,URINE SLT CLOUDY; COLOR,URINE YELLOW; GLUCOSE,URINE NEGATIVE (NEGATIVE); KETONES,URINE TRACE mg/dL (NEGATIVE); LEUKOCYTE ESTERASE,URINE NEGATIVE (NEGATIVE); NITRITE,URINE NEGATIVE (NEGATIVE); OCCULT BLOOD,URINE MODERATE (NEGATIVE); PH,URINE 5.5 (5.0-8.0); PROTEIN,URINE 30 mg/dL (NEGATIVE); UROBILINOGEN,URINE 0.2 EU/dL (<2.0)
[2024-09-21 17:29] LABS: BILIRUBIN,URINE SMALL (NEGATIVE)
[2024-09-21 17:32] LABS: WBC,URINE 0-2 (0-5/HPF)
[2024-09-21 17:33] LABS: BACTERIA,URINE 1+ (NEGATIVE); HYALINE CASTS,URINE 0-1 (0-2/LPF); MUCUS,URINE MODERATE (NONE-MOD); SQUAMOUS EPITHELIAL CELLS,UR MODERATE
[2024-09-21 18:00] VITALS: PULSE 101
== END 2024-09-21 18:17 | disposition left against medical advice (07) ==
LOC: MW.ED 14:58
DX: T78.2XXA Anaphylactic shock, unspecified, initial encounter (principal); J45.909 Unspecified asthma, uncomplicated; K21.9 Gastro-esophageal reflux disease without esophagitis; Z90.49 Acquired absence of other specified parts of digestive tract; Z87.891 Personal history of nicotine dependence; Z91.048 Other nonmedicinal substance allergy status; Z79.51 Long term (current) use of inhaled steroids; Z79.899 Other long term (current) drug therapy
CPT/HCPCS: 36415; 71045; 80053; 81001; 81025; 85025; 93005; 96361; 96372; 96374; 96375; 99283; J0171; J1200; J2405; J2919; J7030